=== PATIENT | male | born 1985 | race Caucasian/White ===

== ENCOUNTER 2017-12-06 11:00 | Outpatient (CLI) | payer MEDICARE, MEDICAID | END 2017-12-06 11:01 | disposition home or self-care (01) | LOC: RT.S 11:00 | PROVIDERS: ATTEND Nurse Practitioner Family | DX: R00.0 Tachycardia, unspecified (principal) | CPT/HCPCS: 93005 ==

== ENCOUNTER 2017-12-07 07:11 | Outpatient (CLI) | payer MEDICARE, MEDICAID ==
[2017-12-07 11:32] LABS: BASOPHILS # (AUTO) 0.1 10^3/uL (0.0-0.1); BASOPHILS % (AUTO) 0.8 %; EOSINOPHILS # (AUTO) 0.1 10^3/uL (0.0-0.7); HGB - HEMOGLOBIN 14.3 g/dL (14.0-18.0); LYMPHOCYTES # (AUTO) 2.1 10^3/uL (1.5-3.5); LYMPHOCYTES % (AUTO) 29.7 %; MEAN CORPUSCULAR HEMOGLOBIN 30.2 pg (27.0-31.0); MEAN CORPUSCULAR HGB CONC 34.8 g/dL (32.0-36.0); MEAN CORPUSCULAR VOLUME 86.9 fL (80.0-94.0); MEAN PLATELET VOLUME 7.7 fL (7.4-11.4); MONOCYTES # (AUTO) 0.5 10^3/uL (0.0-1.0); MONOCYTES % (AUTO) 7.6 %; NEUTROPHILS # (AUTO) 4.3 10^3/uL (1.5-6.6); NEUTROPHILS % (AUTO) 59.9 %; PLT - PLATELET COUNT 310 10^3/uL (130-450); RED BLOOD COUNT 4.74 10^6/uL (4.70-6.10); RED CELL DISTRIBUTION WIDTH 13.2 % (12.0-15.0); WHITE BLOOD COUNT 7.2 x10^3/uL (4.8-10.8)
[2017-12-07 11:34] LABS: ALBUMIN 4.2 g/dL (3.2-5.5); ALKALINE PHOSPHATASE 92 IU/L (42-121); ALT ALANINE AMINOTRANSFERASE 56 IU/L (10-60); AST ASPARTATE AMINOTRANSFERASE 38 IU/L (10-42); BILIRUBIN,TOTAL 1.4 mg/dL (0.2-1.0); BUN - BLOOD UREA NITROGEN 9 mg/dL (6-20); CARBON DIOXIDE - CO2 28 mmol/L (21-32); CHLORIDE 99 mmol/L (101-111); CHOL/HDL RATIO 7.7 (<5.0); CHOLESTEROL 207 mg/dL; CREATININE 1.1 mg/dL (0.6-1.2); GFR - MDRD 78 (>89); GLUCOSE 89 mg/dL (70-100); HDL CHOLESTEROL 27 mg/dL; LDL CHOLESTEROL,CALCULATED 147 mg/dL; LDL/HDL RATIO 5.4 (<3.6); SODIUM 134 mmol/L (135-145); TOTAL PROTEIN 8.4 g/dL (6.7-8.2); VLDL CHOLESTEROL 33 mg/dL
[2017-12-07 11:40] LABS: LITHIUM 0.41 mmol/L
[2017-12-07 11:49] LABS: HB2 TOTAL 15.3 g/dL; HEMOGLOBIN A1C 0.51 g/dL; HEMOGLOBIN A1C % 5.2 % (4.6-6.2)
== END 2017-12-07 07:12 | disposition home or self-care (01) ==
LOC: LAB.F 07:11
PROVIDERS: ATTEND Nurse Practitioner Family
DX: F31.2 Bipolar disorder, current episode manic severe with psychotic features (principal); Z79.899 Other long term (current) drug therapy; Z13.1 Encounter for screening for diabetes mellitus; Z13.220 Encounter for screening for lipoid disorders; Z13.29 Encounter for screening for other suspected endocrine disorder
CPT/HCPCS: 36415; 80053; 80061; 80178; 83036; 83721; 84443; 85025

== ENCOUNTER 2018-12-21 07:16 | Outpatient (CLI) | payer MEDICARE, MEDICAID ==
[2018-12-21 09:50] LABS: BASOPHILS # (AUTO) 0.1 10^3/uL (0.0-0.1); BASOPHILS % (AUTO) 0.6 %; EOSINOPHILS # (AUTO) 0.2 10^3/uL (0.0-0.7); EOSINOPHILS % (AUTO) 2.6 %; HGB - HEMOGLOBIN 14.7 g/dL (14.0-18.0); LYMPHOCYTES # (AUTO) 2.2 10^3/uL (1.5-3.5); LYMPHOCYTES % (AUTO) 28.7 %; MEAN CORPUSCULAR HEMOGLOBIN 29.5 pg (27.0-31.0); MEAN CORPUSCULAR HGB CONC 33.4 g/dL (32.0-36.0); MEAN CORPUSCULAR VOLUME 88.2 fL (80.0-94.0); MEAN PLATELET VOLUME 10.3 fL (7.4-11.4); MONOCYTES # (AUTO) 0.5 10^3/uL (0.0-1.0); NEUTROPHILS # (AUTO) 4.7 10^3/uL (1.5-6.6); NEUTROPHILS % (AUTO) 60.7 %; PLT - PLATELET COUNT 288 10^3/uL (130-450); RED BLOOD COUNT 4.99 10^6/uL (4.70-6.10); RED CELL DISTRIBUTION WIDTH 12.6 % (12.0-15.0); WHITE BLOOD COUNT 7.7 x10^3/uL (4.8-10.8)
[2018-12-21 09:55] LABS: LITHIUM 0.45 mmol/L
[2018-12-21 10:06] LABS: ALBUMIN 4.2 g/dL (3.2-5.5); ALKALINE PHOSPHATASE 101 IU/L (42-121); ALT ALANINE AMINOTRANSFERASE 43 IU/L (10-60); AST ASPARTATE AMINOTRANSFERASE 26 IU/L (10-42); BILIRUBIN,TOTAL 0.5 mg/dL (0.2-1.0); BUN - BLOOD UREA NITROGEN 11 mg/dL (6-20); CALCIUM 9.2 mg/dL (8.5-10.3); CARBON DIOXIDE - CO2 27 mmol/L (21-32); CHLORIDE 101 mmol/L (101-111); CHOL/HDL RATIO 7.6 (<5.0); CHOLESTEROL 219 mg/dL; CREATININE 0.9 mg/dL (0.6-1.2); GFR - MDRD 98 (>89); GLUCOSE 107 mg/dL (70-100); HDL CHOLESTEROL 29 mg/dL; LDL CHOLESTEROL,CALCULATED 142 mg/dL; LDL/HDL RATIO 4.9 (<3.6); SODIUM 138 mmol/L (135-145); TOTAL PROTEIN 8.3 g/dL (6.7-8.2); VLDL CHOLESTEROL 48 mg/dL
[2018-12-21 16:22] LABS: HB2 TOTAL 14.9 g/dL; HEMOGLOBIN A1C 0.51 g/dL; HEMOGLOBIN A1C % 5.3 % (4.6-6.2)
== END 2018-12-21 07:17 | disposition home or self-care (01) ==
LOC: LAB.S 07:16
PROVIDERS: ATTEND Registered Nurse
DX: F25.9 Schizoaffective disorder, unspecified (principal); F31.30 Bipolar disorder, current episode depressed, mild or moderate severity, unspecified; F41.9 Anxiety disorder, unspecified; Z79.899 Other long term (current) drug therapy; Z13.220 Encounter for screening for lipoid disorders; Z13.1 Encounter for screening for diabetes mellitus
CPT/HCPCS: 36415; 80053; 80061; 80178; 83036; 83721; 84443; 85025

== ENCOUNTER 2019-02-19 09:44 | Outpatient (CLI) | payer MEDICARE, MEDICAID ==
[2019-02-19 17:28] LABS: LITHIUM 0.47 mmol/L
== END 2019-02-19 09:45 | disposition home or self-care (01) ==
LOC: LAB.S 09:44
PROVIDERS: ATTEND Registered Nurse
DX: F31.9 Bipolar disorder, unspecified (principal)
CPT/HCPCS: 36415; 80178; 84443

== ENCOUNTER 2019-03-20 09:03 | Outpatient (CLI) | payer MEDICARE, MEDICAID ==
[2019-03-20 18:27] LABS: LITHIUM 0.63 mmol/L
== END 2019-03-20 09:04 | disposition home or self-care (01) ==
LOC: LAB.S 09:03
PROVIDERS: ATTEND Registered Nurse
DX: F31.30 Bipolar disorder, current episode depressed, mild or moderate severity, unspecified (principal)
CPT/HCPCS: 36415; 80178

== ENCOUNTER 2019-05-30 08:20 | Emergency (ER) | payer MEDICARE, MEDICAID ==
[2019-05-30 09:29] LABS: BILIRUBIN,URINE NEGATIVE (NEGATIVE); GLUCOSE, URINE (UA) NEGATIVE (NEGATIVE); KETONES,URINE (UA) NEGATIVE (NEGATIVE); LEUKOCYTE ESTERASE, URINE NEGATIVE (NEGATIVE); NITRITE,URINE NEGATIVE (NEGATIVE); OCCULT BLOOD,URINE SMALL (NEGATIVE); PROTEIN,URINE NEGATIVE (NEGATIVE); UROBILINOGEN,URINE 0.2 (NORMAL) E.U./dL (NORMAL)
[2019-05-30 09:31] LABS: CLARITY,URINE CLEAR (CLEAR)
--- NOTE | 2019-05-30 09:38 | ED Physician Documentation ---
PD HPI ABD PAIN - Stated complaint Stated Complaint: ABD PX - Chief complaint Chief Complaint: Abd Pain - History obtained from History obtained from: Patient, Family - History of Present Illness Timing - onset: How many days ago (3) Timing - duration: Days (3) Timing - details: Gradual onset, Now resolved Quality: Cramping, Sharp, Pain Location: Suprapubic Radiation: Lower back Improved by: Laying still Worsened by: Moving, Position, Palpation Associated symptoms: Nausea, Vomiting, Constipation Similar symptoms before: Has not had sx before Recently seen: Not recently seen - Additional information Additional information: 33-year-old male with a history of schizoaffective bipolar disorder comes to the emergency department this morning with his father with a history of 3 days of lower abdominal pain. He states the pain is just above his pubic bone and has radiated to his back. He has been constipated and yesterday he began to vomit. He is not having vomiting today and he did take some stool softener and a laxative has had a bowel movement this morning and since he has been in the emergency department he has had a bowel movement here and he feels improved. Review of Systems Constitutional: denies: Fever, Chills Eyes: denies: Decreased vision Ears: denies: Ear pain Nose: denies: Congestion Throat: denies: Dental pain / toothache, Sore throat Cardiac: denies: Chest pain / pressure, Palpitations Respiratory: denies: Dyspnea, Cough GI: reports: Abdominal Pain, Nausea, Vomiting, Constipation : denies: Dysuria, Frequency Skin: denies: Rash Musculoskeletal: reports: Back pain. denies: Neck pain, Extremity pain Neurologic: denies: Generalized weakness, Focal weakness, Numbness, Difficulty speaking PD PAST MEDICAL HISTORY - Past Medical History Past Medical History: Yes Cardiovascular: Other Respiratory: None Neuro: None Endocrine/Autoimmune: None GI: None : None HEENT: None Psych: Depression, Anxiety, Bipolar disorder, Schizophrenia, Obsessive compulsive disorder Musculoskeletal: Other Derm: None - Past Surgical History Past Surgical History: Yes - Present Medications Home Medications: Ambulatory Orders Medication Instructions Recorded Confirmed Citalopram Hydrobromide 40 mg PO DAILY 03/31/18 05/30/19 [Citalopram HBr] [place] [facility] [Lithobid] 300 mg PO BID 03/31/18 05/30/19 Paliperidone Palmitate [Invega 117 mg IM ONCE MDD EVERY MONTH 03/31/18 05/30/19 Sustenna] Prazosin [Minipress] 1 mg PO QPM 03/31/18 05/30/19 Trazodone HCl 50 mg PO QPM 03/31/18 05/30/19 - Allergies Allergies/Adverse Reactions: Allergies Allergy/AdvReac Type Severity Reaction Status Date / Time No Known Drug Allergies Allergy Verified 05/30/19 08:26 - Social History Does the pt smoke?: No Smoking Status: Never smoker Does the pt drink ETOH?: No Does the pt have substance abuse?: No - Immunizations Immunizations are current?: Yes - POLST Patient has POLST: No PD ED PE NORMAL - Vitals Vital signs reviewed: Yes (tachy and hypertensive ) - General General: No acute distress, Well developed/nourished - HEENT HEENT: Atraumatic, PERRL, EOMI - Neck Neck: Supple, no meningeal sign, No bony TTP - Cardiac Cardiac: RRR, No murmur - Respiratory Respiratory: No respiratory distress, Clear bilaterally - Abdomen Abdomen: Normal bowel sounds, Soft, Non tender, Non distended, No organomegaly - Back Back: No CVA TTP, No spinal TTP - Derm Derm: Normal color, Warm and dry, No rash - Extremities Extremities: No deformity, No edema, No calf tenderness / cord - Neuro Neuro: Alert and oriented X 3, ice guard skating rink 2-12 intact, No motor deficit, No sensory deficit, Normal speech Eye Opening: Spontaneous Motor: Obeys Commands Verbal: Oriented GCS Score: 15 - Psych Psych: Normal mood, Normal affect Results - Vitals Vitals: Vital Signs - 24 hr 05/30/19 05/30/19 08:26 09:14 Temperature 37 C 36.8 C Heart Rate 102 H 82 Respiratory 16 16 Rate Blood Pressure 150/83 H 135/78 H O2 Saturation 96 97 Oxygen O2 Source Room air - Labs Labs: Laboratory Tests 05/30/19 09:10 Urine Color YELLOW Urine Clarity CLEAR Urine pH 6.0 Ur Specific [place] <=1.005 Urine Protein NEGATIVE Urine Glucose (UA) NEGATIVE Urine Ketones NEGATIVE Urine Occult Blood SMALL H Urine Nitrite NEGATIVE Urine Bilirubin NEGATIVE Urine Urobilinogen 0.2 (NORMAL) Ur Leukocyte Esterase NEGATIVE Ur Microscopic Review INDICATED Urine Culture Comments Not Reportable PD MEDICAL DECISION MAKING - ED course Complexity details: considered differential, d/w patient, d/w family ED course: 33-year-old male with lower abdominal pain and constipation by history has had a bowel movement here in the emergency department his symptoms are now resolved and the physical examination is completely unremarkable. I discussed the findings with the patient and his father they are very satisfied and wished to go home without further work-up. Departure - Departure Disposition: 01 Home, Self Care Clinical Impression: Constipation Qualifiers: Constipation type: unspecified constipation type Qualified Code(s): K59.00 - Constipation, unspecified Condition: Stable Instructions: ED Constipation Follow-Up: Temi Case ARNP [Primary Care Provider] -
[2019-05-30 09:46] VITALS: BP 176/95
[2019-05-30 09:52] LABS: BACTERIA,URINE Rare /HPF (None Seen); RBC,URINE 0-5 /HPF (0-5); SQUAMOUS EPITHELIAL CELL,UR NONE SEEN (<= Few)
== END 2019-05-30 09:45 | disposition home or self-care (01) ==
LOC: ED 08:20
DX: K59.00 Constipation, unspecified (principal)
CPT/HCPCS: 81001; 81003; 87086; 99283; 99284

== ENCOUNTER 2019-05-30 20:40 | Emergency (ER) | payer MEDICARE, MEDICAID ==
[2019-05-30] MEDS ORDERED: SODIUM CHLORIDE 0.9% 1,000 ML IV STA (21:08)
[2019-05-30] MEDS ORDERED: MORPHINE 10 MG/ML VIAL IVP STA (21:08)
[2019-05-30] MEDS ORDERED: ONDANSETRON 4 MG/2 ML VIAL IVP STA (21:08)
--- NOTE | 2019-05-30 21:10 | ED Physician Documentation ---
PD HPI ABD PAIN - Stated complaint Stated Complaint: AB PX - Chief complaint Chief Complaint: Abd Pain - Additional information Additional information: This is a 33-year-old male who presents with abdominal pain. Patient has had lower abdominal pain for 3 days, started as dull crampy type pain across his lower abdomen and then it began rating to his bilateral flanks. He was seen earlier today and had a urinalysis done which was unremarkable. He felt like he had constipation but despite taking some stool softeners and laxatives and having several bowel movements his pain worsened. It is currently a 09/18. He also had 2 episodes of vomiting which have been nonbloody, nonbilious. His bowel movements been soft but not diarrhea. He has not had any abdominal surgeries in the past. He has been taking some Tylenol and this is not been helping. No fever. On specific questioning his discomfort radiates down towards the scrotum but he denies testicular penile pain. No dysuria. No confusion. No recent changes to medication. He takes Invega and lithium. Review of Systems Constitutional: denies: Fever Nose: denies: Rhinorrhea / runny nose Throat: denies: Dental pain / toothache Cardiac: denies: Chest pain / pressure Respiratory: denies: Dyspnea GI: reports: Abdominal Pain : denies: Dysuria Skin: denies: Rash Neurologic: denies: Generalized weakness Immunocompromised: denies: Immunocompromised PD PAST MEDICAL HISTORY - Past Medical History Cardiovascular: Other Respiratory: None Neuro: None Endocrine/Autoimmune: None GI: None : None HEENT: None Psych: Depression, Anxiety, Bipolar disorder, Schizophrenia, Obsessive compulsive disorder Musculoskeletal: Other Derm: None - Past Surgical History Past Surgical History: Yes - Present Medications Home Medications: Ambulatory Orders Medication Instructions Recorded Confirmed Citalopram Hydrobromide 40 mg PO DAILY 03/31/18 05/30/19 [Citalopram HBr] [place] [facility] [Lithobid] 300 mg PO BID 03/31/18 05/30/19 Paliperidone Palmitate [Invega 117 mg IM ONCE MDD EVERY MONTH 03/31/18 05/30/19 Sustenna] Prazosin [Minipress] 1 mg PO QPM 03/31/18 05/30/19 Trazodone HCl 50 mg PO QPM 03/31/18 05/30/19 Hydrocodone/Acetaminophen 1 each PO Q6H PRN #5 tablet 05/31/19 [Hydrocodon-Acetaminophen 5-325] - Allergies Allergies/Adverse Reactions: Allergies Allergy/AdvReac Type Severity Reaction Status Date / Time No Known Drug Allergies Allergy Verified 05/30/19 20:50 - Social History Does the pt smoke?: No Smoking Status: Never smoker Does the pt drink ETOH?: No Does the pt have substance abuse?: No - Immunizations Immunizations are current?: Yes - POLST Patient has POLST: No PD ED PE NORMAL - Vitals Vital signs reviewed: Yes - General General: Alert and oriented X 3, No acute distress - HEENT HEENT: PERRL - Neck Neck: Supple, no meningeal sign - Cardiac Cardiac: No murmur, Other (Tachycardia, regular rhythm) - Respiratory Respiratory: No respiratory distress, Clear bilaterally - Abdomen Abdomen: Soft, Other (Non-tender, mild bilateral lower abdominal discomfort, but no specific RLQ tenderness.) - Male Male : Other (Normal appearing external genitalia, no testicular tenderness, Cremasteric reflex intact bilaterally, no hernia ) - Derm Derm: Warm and dry - Extremities Extremities: No deformity - Neuro Neuro: Alert and oriented X 3, network project manager 2-12 intact, No motor deficit, No sensory deficit, Normal speech, Other (No significant tremor with outstretched hands. Normal gait.) - Psych Psych: Normal mood, Normal affect Results - Vitals Vitals: Oxygen O2 Source Room air - Labs Labs: Laboratory Tests 05/30/19 05/30/19 05/30/19 21:17 21:17 23:59 WBC 10.8 RBC 4.55 L Hgb 13.3 L Hct 40.2 L MCV 88.4 MCH 29.2 MCHC 33.1 RDW 12.4 Plt Count 257 MPV 9.0 Neut # (Auto) 8.5 H Lymph # (Auto) 1.4 L [place] # (Auto) 0.7 Eos # (Auto) 0.1 Baso # (Auto) 0.0 Absolute Nucleated RBC 0.00 Nucleated RBC % 0.0 Sodium 137 138 Potassium 3.6 4.0 Chloride 103 105 Carbon Dioxide 25 25 Anion Gap 9.0 8.0 BUN 25 H 26 H Creatinine 2.3 H 2.3 H Estimated GFR (MDRD) 33 L 33 L Glucose 165 H 82 Calcium 9.2 8.9 Total Bilirubin 0.4 AST 24 ALT 24 Alkaline Phosphatase 91 Total Protein 8.4 H Albumin 4.0 Globulin 4.4 H Albumin/Globulin Ratio 0.9 L Lipase 45 Urine Color Urine Clarity Urine pH Ur Specific [place] Urine Protein Urine Glucose (UA) Urine Ketones Urine Occult Blood Urine Nitrite Urine Bilirubin Urine Urobilinogen Ur Leukocyte Esterase Urine RBC Urine WBC Ur Squamous Epith Cells Urine Bacteria Urine Culture Comments Last Dose Date Last Dose Time [place] 05/30/19 05/31/19 23:59 00:42 WBC RBC Hgb Hct MCV MCH MCHC RDW Plt Count MPV Neut # (Auto) Lymph # (Auto) [place] # (Auto) Eos # (Auto) Baso # (Auto) Absolute Nucleated RBC Nucleated RBC % Sodium Potassium Chloride Carbon Dioxide Anion Gap BUN Creatinine Estimated GFR (MDRD) Glucose Calcium Total Bilirubin AST ALT Alkaline Phosphatase Total Protein Albumin Globulin Albumin/Globulin Ratio Lipase Urine Color YELLOW Urine Clarity CLEAR Urine pH 7.0 Ur Specific [place] <=1.005 Urine Protein NEGATIVE Urine Glucose (UA) NEGATIVE Urine Ketones NEGATIVE Urine Occult Blood TRACE-INTA Urine Nitrite NEGATIVE Urine Bilirubin NEGATIVE Urine Urobilinogen 0.2 (NORMAL) Ur Leukocyte Esterase NEGATIVE Urine RBC 0-5 Urine WBC 0-3 Ur Squamous Epith Cells NONE SEEN Urine Bacteria None Seen Urine Culture Comments NOT INDICATED Last Dose Date 05/30/19 Last Dose Time 1100 [place] 0.77 - Rads (name of study) Ct abd/pelvis Radiology: Other (Normal abdomen and pelvis CT) PD MEDICAL DECISION MAKING - ED course Complexity details: considered differential (Nephrolithiasis, urinary retention, pyelonephritis, urinary obstruction, enteritis, appendicitis, electrolyte abnormality, glomerular nephritis, [place] toxicity.) ED course: On arrival patient was tachycardic, but he is well-appearing. Pt has some tenderness in the lower abdomen, CT and labs were ordered. Labs are drawn and show an unremarkable CBC. His CMP shows an elevated creatinine at 2.3 his baseline appears to be around 1, his BUN is 26, his urine does not show any protein, 0-5 RBCs 0-3 WBCs, no casts, his lithium level is on the low side of the therapeutic range at 0.77. CT scan is abdomen pelvis reveals no abdominal pathology. Given his acute kidney injury, he was given a liter of normal saline, though he states that he has been drinking water and he does not feel dehydrated. His urine does not show signs of glomerulonephritis, and a CT scan does not show signs of obstruction, or other acute abdominal process. His postvoid residual is 0-30 cc, no signs of retention. He Reports taking his medications as prescribed. [facility] was paged at 1:20 AM. I spoke with Dr. Kapadia of nephrology and discussed the case with her. Given there are no signs of glomerulonephritis, the patient is nontoxic-appearing, his vital signs are now unremarkable other than some mild hypertension, she will schedule outpatient follow-up for him in clinic. He does not appear to need hospitalization or a renal biopsy at this time. She also would like him to get a repeat BMP and urinalysis by next Tuesday, to check for protein in his urine or worsening kidney function. I discussed this with the patient, and offered the plan of close outpatient follow-up versus transfer to [facility], he would prefer to pursue the work-up outpatient if possible. I discussed with patient that the exact cause of his acute kidney injury is unknown, it is possible however that his lithium is playing a role. I instructed him to stop taking his lithium, drink plenty of fluids, and that if he is developing any repeated vomiting, diarrhea, confusion, ataxia or other symptoms he is to return to the emergency department immediately. He has no neurologic symptoms or signs of potential lithium toxicity other than the LYRIC at this time, and does not appear to require admission given his ability for close follow up. I instructed patient to obtain repeat labs within 48 hours, either with his PCP or here in the ED. He agrees this plan. His pain is more mild after he received 1 dose more I discussed with him that if he is having increasing or significant pain he needs to be reevaluated, but I do feel comfortable prescribing him a small number of Vicodin for discomfort in the interim. Patient has father's questions were answered, my return precautions was again discussed, and he was discharged home in good cond ition. Departure - Departure Disposition: 01 Home, Self Care Clinical Impression: Acute kidney injury Condition: Good Follow-Up: Temi Case ARNP [Primary Care Provider] - (In 2 days) Prescriptions: Hydrocodone/Acetaminophen [Hydrocodon-Acetaminophen 5-325] 1 each PO Q6H PRN #5 tablet PRN Reason: pain Comments: The CT scan did not show an obvious cause of your abdominal pain. Your kidney function is decreased, your creatinine was 2.3 today. This may be related to your [place]. Please do not take any more of your lithium until you are cleared by your doctor. You need to have a basic metabolic panel and a urinalysis taken by Tuesday at the latest, and ideally by Tuesday. If your kidney function is worsening or if there are signs of protein or blood in your urine, you will need to be seen in hospital by a rn support services/kidney specialist. If you are unable to get these labs done with your primary care provider, return to the emergency department for re-testing. We have also spoken with Dr. Kapadia of nephrology at [facility], and they will be contacting you to schedule an appointment. If you are having increasing pain, any confusion, shakiness, vomiting, diarrhea, or other concerning symptoms, return to the emergency department immediately. Drink plenty of fluids. I am prescribing you a very small number of Hydrocodone, use these sparingly and only if your pain is not controlled with Tylenol alone. I would avoid ibuprofen and Aleve as these can cause issues with your kidneys. Do not drink alcohol or drive while taking narcotic pain medication. Note that many narcotic pain relievers also contain Tylenol/acetaminophen. Please ensure that your total dose of acetaminophen from all sources does not exceed 3 g (3000 mg) per day. You may get constipated while on this medication. Take a stool softener such as Colace twice a day while you are on it. Also add an [id number] laxative such as senna or MiraLAX on any day that you do not have a bowel movement. If you received a narcotic pain medication or sedative while in the emergency department, do not drive for the next 24 hours. Discharge Date/Time: 05/31/19 03:34
[2019-05-30] MEDS ORDERED: MORPHINE 2 MG/ML CARPUJECT IVP STA (21:19)
[2019-05-30 21:21] LABS: BASOPHILS % (AUTO) 0.3 %; EOSINOPHILS # (AUTO) 0.1 10^3/uL (0.0-0.7); HGB - HEMOGLOBIN 13.3 g/dL (14.0-18.0); LYMPHOCYTES # (AUTO) 1.4 10^3/uL (1.5-3.5); LYMPHOCYTES % (AUTO) 13.2 %; MEAN CORPUSCULAR HEMOGLOBIN 29.2 pg (27.0-31.0); MEAN CORPUSCULAR HGB CONC 33.1 g/dL (32.0-36.0); MEAN CORPUSCULAR VOLUME 88.4 fL (80.0-94.0); MONOCYTES # (AUTO) 0.7 10^3/uL (0.0-1.0); MONOCYTES % (AUTO) 6.5 %; NEUTROPHILS # (AUTO) 8.5 10^3/uL (1.5-6.6); NEUTROPHILS % (AUTO) 78.5 %; PLT - PLATELET COUNT 257 10^3/uL (130-450); RED BLOOD COUNT 4.55 10^6/uL (4.70-6.10); RED CELL DISTRIBUTION WIDTH 12.4 % (12.0-15.0); WHITE BLOOD COUNT 10.8 x10^3/uL (4.8-10.8)
[2019-05-30] MEDS ORDERED: IOVERSOL 320 100 ML VIAL IVP ONE ×2 (21:31→22:24)
[2019-05-30 21:38] LABS: ALBUMIN/GLOBULIN RATIO 0.9 (1.0-2.2); BILIRUBIN,TOTAL 0.4 mg/dL (0.2-1.0); CALCIUM 9.2 mg/dL (8.5-10.3); CREATININE 2.3 mg/dL (0.6-1.2); TOTAL PROTEIN 8.4 g/dL (6.7-8.2)
--- NOTE | 2019-05-30 22:48 | CT Report ---
Reason: Abdominal pain, acute, nonlocalized Procedure Date: 05/30/2019 Accession Number: [id number] / [id number] Procedure: CT - Abdomen/Pelvis W CPT Code: Final Report FULL RESULT: EXAM: CT ABDOMEN AND PELVIS EXAM DATE: 05/30/2019 10:25 PM. CLINICAL HISTORY: Abdominal pain, acute, nonlocalized, for 3-4 days. COMPARISONS: None. TECHNIQUE: Routine helical CT imaging was performed through the abdomen and pelvis. IV contrast: 100 cc of Optiray 320. Enteric contrast: No. Reconstructions: Coronal and sagittal. In accordance with CT protocol optimization, one or more of the following dose reduction techniques were utilized for this exam: automated exposure control, adjustment of mA and/or KV based on patient size, or use of iterative reconstructive technique. FINDINGS: Lung Bases: Unremarkable. Liver: Normal. No masses. Gallbladder/Bile Ducts: Unremarkable. Spleen: Normal. Pancreas: Normal. Adrenal Glands: Normal. Kidneys: Normal. No masses or hydronephrosis. Peritoneal Cavity/Bowel: Normal. No free fluid, free air or adenopathy. No masses or acute inflammatory process. The appendix is well visualized and normal. Pelvic Organs: Normal. The bladder and visualized pelvic organs are within normal limits. Vasculature: No aneurysms or other significant abnormality. Bones: No significant abnormality. Other: None. IMPRESSION: Normal abdomen and pelvis CT. RADIA
[2019-05-31 00:24] LABS: CALCIUM 8.9 mg/dL (8.5-10.3); CREATININE 2.3 mg/dL (0.6-1.2)
[2019-05-31 00:40] LABS: LITHIUM 0.77 mmol/L
[2019-05-31 00:48] LABS: BILIRUBIN,URINE NEGATIVE (NEGATIVE); GLUCOSE, URINE (UA) NEGATIVE (NEGATIVE); KETONES,URINE (UA) NEGATIVE (NEGATIVE); LEUKOCYTE ESTERASE, URINE NEGATIVE (NEGATIVE); NITRITE,URINE NEGATIVE (NEGATIVE); OCCULT BLOOD,URINE TRACE-INTA (NEGATIVE); PROTEIN,URINE NEGATIVE (NEGATIVE); UROBILINOGEN,URINE 0.2 (NORMAL) E.U./dL (NORMAL)
[2019-05-31 00:51] LABS: CLARITY,URINE CLEAR (CLEAR)
[2019-05-31 00:55] LABS: BACTERIA,URINE None Seen /HPF (None Seen); RBC,URINE 0-5 /HPF (0-5); SQUAMOUS EPITHELIAL CELL,UR NONE SEEN (<= Few)
[2019-05-31] MEDS ORDERED: HYDROcod/ACETAM 5/325 MG TABLET PO STA (03:18)
[2019-05-31 03:33] VITALS: BP 128/70
== END 2019-05-31 03:34 | disposition home or self-care (01) ==
LOC: ED 20:40
DX: N17.9 Acute kidney failure, unspecified (principal); K59.00 Constipation, unspecified
CPT/HCPCS: 36415; 74177; 80048; 80053; 80178; 81001; 83690; 85025; 96361; 96374; 96375; 99283; 99284; A9270; Q9967; 81003; 87086

== ENCOUNTER 2019-06-01 15:21 | Outpatient (CLI) | payer MEDICARE, MEDICAID ==
[2019-06-01 18:10] LABS: HB2 TOTAL 14.2 g/dL; HEMOGLOBIN A1C 0.49 g/dL; HEMOGLOBIN A1C % 5.3 % (4.6-6.2)
[2019-06-01 18:40] LABS: CALCIUM 9.4 mg/dL (8.5-10.3); CREATININE 2.2 mg/dL (0.6-1.2)
[2019-06-01 18:48] LABS: BILIRUBIN,URINE NEGATIVE (NEGATIVE); GLUCOSE, URINE (UA) NEGATIVE (NEGATIVE); KETONES,URINE (UA) NEGATIVE (NEGATIVE); LEUKOCYTE ESTERASE, URINE NEGATIVE (NEGATIVE); NITRITE,URINE NEGATIVE (NEGATIVE); OCCULT BLOOD,URINE SMALL (NEGATIVE); PROTEIN,URINE NEGATIVE (NEGATIVE); UROBILINOGEN,URINE 0.2 (NORMAL) E.U./dL (NORMAL)
[2019-06-01 18:50] LABS: CLARITY,URINE CLEAR (CLEAR)
[2019-06-01 19:04] LABS: BACTERIA,URINE None Seen /HPF (None Seen); RBC,URINE 0-5 /HPF (0-5); SQUAMOUS EPITHELIAL CELL,UR NONE SEEN (<= Few)
== END 2019-06-01 15:22 | disposition home or self-care (01) ==
LOC: LAB.S 15:21
PROVIDERS: ATTEND Registered Nurse
DX: R10.9 Unspecified abdominal pain (principal)
CPT/HCPCS: 36415; 80048; 81001; 81003; 83036

== ENCOUNTER 2019-06-25 08:00 | Outpatient (CLI) | payer MEDICARE, MEDICAID ==
[2019-06-25 17:30] LABS: CREATININE,URINE 96.1 mg/dL
[2019-06-25 17:36] LABS: BILIRUBIN,URINE NEGATIVE (NEGATIVE); GLUCOSE, URINE (UA) NEGATIVE (NEGATIVE); KETONES,URINE (UA) NEGATIVE (NEGATIVE); LEUKOCYTE ESTERASE, URINE NEGATIVE (NEGATIVE); NITRITE,URINE NEGATIVE (NEGATIVE); OCCULT BLOOD,URINE NEGATIVE (NEGATIVE); PROTEIN,URINE NEGATIVE (NEGATIVE); UROBILINOGEN,URINE 0.2 (NORMAL) E.U./dL (NORMAL)
[2019-06-25 17:41] LABS: ALBUMIN 4.2 g/dL (3.2-5.5); CALCIUM 9.2 mg/dL (8.5-10.3); CLARITY,URINE CLEAR (CLEAR); PHOSPHORUS 3.2 mg/dL (2.5-4.6); TOTAL PROTEIN,URINE TIMED < 6 mg/dL; URIC ACID 6.2 mg/dL (2.6-7.2)
== END 2019-06-25 23:59 | disposition home or self-care (01) ==
LOC: LAB.S 08:00
PROVIDERS: ATTEND Internal Medicine Nephrology
DX: N17.9 Acute kidney failure, unspecified (principal); R31.9 Hematuria, unspecified
CPT/HCPCS: 36415; 80069; 81001; 81003; 82570; 84156; 84550; 87086

== ENCOUNTER 2019-12-19 20:08 | Emergency (ER) | payer MEDICARE, MEDICAID ==
--- NOTE | 2019-12-19 20:12 | ED Physician Documentation ---
History of Present Illness - Stated complaint Stated Complaint: CP - History obtained from History obtained from: Patient - Additonal information Additional information: 34 y/o m w cp that lasted about 5 seconds while sitting in chair. denies any hx of pe/dvt. denies syncope. reports symptoms are resolved currently. Review of Systems Constitutional: reports: Reviewed and negative Eyes: reports: Reviewed and negative Ears: reports: Reviewed and negative Nose: reports: Reviewed and negative Throat: reports: Reviewed and negative Cardiac: reports: Chest pain / pressure, Palpitations Respiratory: reports: Reviewed and negative GI: reports: Reviewed and negative : reports: Reviewed and negative Skin: reports: Reviewed and negative Musculoskeletal: reports: Reviewed and negative Neurologic: reports: Reviewed and negative Psychiatric: reports: Reviewed and negative Endocrine: reports: Reviewed and negative Immunocompromised: reports: Reviewed and negative PD PAST MEDICAL HISTORY - Past Medical History Cardiovascular: Other Respiratory: None Neuro: None Endocrine/Autoimmune: None GI: None : None HEENT: None Psych: Depression, Anxiety, Bipolar disorder, Schizophrenia, Obsessive compulsive disorder Musculoskeletal: Other Derm: None - Past Surgical History Past Surgical History: Yes - Present Medications Home Medications: Ambulatory Orders Medication Instructions Recorded Confirmed Citalopram Hydrobromide 40 mg PO DAILY 03/31/18 09/14/19 [Citalopram HBr] Paliperidone Palmitate [Invega 117 mg IM ONCE MDD EVERY MONTH 03/31/18 09/14/19 Sustenna] Prazosin [Minipress] 1 mg PO QPM 03/31/18 09/14/19 Trazodone HCl 100 mg PO QPM 03/31/18 09/14/19 - Allergies Allergies/Adverse Reactions: Allergies Allergy/AdvReac Type Severity Reaction Status Date / Time No Known Drug Allergies Allergy Verified 12/19/19 20:24 - Social History Does the pt smoke?: No Smoking Status: Never smoker Does the pt drink ETOH?: No Does the pt have substance abuse?: No - Immunizations Immunizations are current?: Yes - POLST Patient has POLST: No PD ED PE NORMAL - Vitals Vital signs reviewed: Yes - General General: Alert and oriented X 3, No acute distress, Well developed/nourished - HEENT HEENT: PERRL, Moist mucous membranes - Neck Neck: Supple, no meningeal sign, No adenopathy, Thyroid normal, No JVD - Cardiac Cardiac: RRR, No murmur, No gallop, No rub, Strong equal pulses - Respiratory Respiratory: No respiratory distress, Clear bilaterally - Abdomen Abdomen: Normal bowel sounds, Soft, Non tender, Non distended, No organomegaly - Back Back: No CVA TTP, No spinal TTP - Derm Derm: Normal color, Warm and dry, No rash - Extremities Extremities: No deformity, No tenderness to palpate, Normal ROM s pain, No edema, No calf tenderness / cord - Neuro Neuro: Alert and oriented X 3, automation engineer 2-12 intact, No motor deficit, No sensory deficit, Normal speech - Psych Psych: Normal mood, Normal affect Results - Vitals Vitals: Vital Signs - 24 hr 12/19/19 12/19/19 12/19/19 20:22 20:46 21:56 Temperature 36.8 C Heart Rate 111 H 100 97 Respiratory 18 22 17 Rate Blood Pressure 160/89 H 150/92 H 139/89 H O2 Saturation 97 97 95 Oxygen O2 Source Room air - EKG (time done) 20:15 Rate: Other (no stemi) - Labs Labs: Laboratory Tests 12/19/19 12/19/19 12/19/19 20:45 20:45 20:45 WBC 7.2 RBC 5.03 Hgb 14.7 Hct 43.4 MCV 86.3 MCH 29.2 MCHC 33.9 RDW 12.7 Plt Count 275 MPV 9.1 Neut # (Auto) 4.0 Lymph # (Auto) 2.4 [place] # (Auto) 0.6 Eos # (Auto) 0.1 Baso # (Auto) 0.0 Absolute Nucleated RBC 0.00 Nucleated RBC % 0.0 D-Dimer Sodium 136 Potassium 3.4 L Chloride 100 L Carbon Dioxide 26 Anion Gap 10.0 BUN 11 Creatinine 0.9 Estimated GFR (MDRD) 97 Glucose 109 H Calcium 8.9 Total Bilirubin 0.7 AST 32 ALT 57 Alkaline Phosphatase 118 Troponin I High Sens 2.9 Total Protein 8.6 H Albumin 4.3 Globulin 4.3 H Albumin/Globulin Ratio 1.0 Lipase 42 12/19/19 20:45 WBC RBC Hgb Hct MCV MCH MCHC RDW Plt Count MPV Neut # (Auto) Lymph # (Auto) [place] # (Auto) Eos # (Auto) Baso # (Auto) Absolute Nucleated RBC Nucleated RBC % D-Dimer 216.9 Sodium Potassium Chloride Carbon Dioxide Anion Gap BUN Creatinine Estimated GFR (MDRD) Glucose Calcium Total Bilirubin AST ALT Alkaline Phosphatase Troponin I High Sens Total Protein Albumin Globulin Albumin/Globulin Ratio Lipase PD MEDICAL DECISION MAKING - ED course Complexity details: considered differential (likely atypical chest pain,), other (heart score 0, PERC 1 because of HR, negative cxr, negative d dimer, negative cxr) Departure - Departure Disposition: 01 Home, Self Care Clinical Impression: Atypical chest pain Condition: Stable Instructions: ED Chest Pain Atypical Unkn Cause Follow-Up: Temi Case ARNP [Primary Care Provider] - Tomorrow Comments: please follow up with your primary care provider tomorrow. return to the emergency department with any concerns. Discharge Date/Time: 12/19/19 21:56
[2019-12-19 20:53] LABS: BASOPHILS % (AUTO) 0.4 %; EOSINOPHILS # (AUTO) 0.1 10^3/uL (0.0-0.7); EOSINOPHILS % (AUTO) 1.8 %; HGB - HEMOGLOBIN 14.7 g/dL (14.0-18.0); LYMPHOCYTES # (AUTO) 2.4 10^3/uL (1.5-3.5); LYMPHOCYTES % (AUTO) 33.6 %; MEAN CORPUSCULAR HEMOGLOBIN 29.2 pg (27.0-31.0); MEAN CORPUSCULAR HGB CONC 33.9 g/dL (32.0-36.0); MEAN CORPUSCULAR VOLUME 86.3 fL (80.0-94.0); MEAN PLATELET VOLUME 9.1 fL (7.4-11.4); MONOCYTES # (AUTO) 0.6 10^3/uL (0.0-1.0); MONOCYTES % (AUTO) 8.9 %; NEUTROPHILS % (AUTO) 54.9 %; PLT - PLATELET COUNT 275 10^3/uL (130-450); RED BLOOD COUNT 5.03 10^6/uL (4.70-6.10); RED CELL DISTRIBUTION WIDTH 12.7 % (12.0-15.0); WHITE BLOOD COUNT 7.2 x10^3/uL (4.8-10.8)
[2019-12-19 21:04] LABS: ALBUMIN 4.3 g/dL (3.2-5.5); BILIRUBIN,TOTAL 0.7 mg/dL (0.2-1.0); CALCIUM 8.9 mg/dL (8.5-10.3); CREATININE 0.9 mg/dL (0.6-1.2); TOTAL PROTEIN 8.6 g/dL (6.7-8.2)
--- NOTE | 2019-12-19 21:14 | XRAY Report ---
PROCEDURE: Chest 1 View X-Ray INDICATIONS: cp TECHNIQUE: One view of the chest was acquired. COMPARISON: None. FINDINGS: Surgical changes and devices: None. Lungs and pleura: No pleural effusions or pneumothorax. Lungs are clear. Mediastinum: Mediastinal contours appear normal. Heart size is normal. Bones and chest wall: No suspicious bony lesions. Overlying soft tissues appear unremarkable. IMPRESSION: No acute cardiopulmonary abnormalities. Reviewed by: Russ Cazares MD on 12/19/2019 9:13 PM PDT Approved by: Russ Cazares MD on 12/19/2019 9:13 PM PDT Station ID: [id number]
[2019-12-19 21:57] VITALS: BP 139/89
== END 2019-12-19 21:56 | disposition home or self-care (01) ==
LOC: ED 20:08
DX: R07.89 Other chest pain (principal); R00.0 Tachycardia, unspecified
CPT/HCPCS: 36415; 71045; 80053; 83690; 84484; 85025; 85379; 93005; 99283; 99284

== ENCOUNTER 2020-05-28 17:48 | Day surgery (SDC) | payer MEDICARE, MEDICAID ==
[2020-05-28 18:24] LABS: MUDS CUTOFF CONCENTRATIONS CUTOFF CONC BELOW:
[2020-05-28 18:27] LABS: BASOPHILS % (AUTO) 0.6 %; EOSINOPHILS # (AUTO) 0.1 10^3/uL (0.0-0.7); EOSINOPHILS % (AUTO) 0.9 %; HGB - HEMOGLOBIN 14.9 g/dL (14.0-18.0); LYMPHOCYTES # (AUTO) 1.5 10^3/uL (1.5-3.5); MEAN CORPUSCULAR HEMOGLOBIN 29.2 pg (27.0-31.0); MEAN CORPUSCULAR HGB CONC 33.3 g/dL (32.0-36.0); MEAN CORPUSCULAR VOLUME 87.6 fL (80.0-94.0); MEAN PLATELET VOLUME 9.1 fL (7.4-11.4); MONOCYTES # (AUTO) 0.6 10^3/uL (0.0-1.0); MONOCYTES % (AUTO) 7.9 %; NEUTROPHILS # (AUTO) 4.9 10^3/uL (1.5-6.6); NEUTROPHILS % (AUTO) 69.2 %; PLT - PLATELET COUNT 272 10^3/uL (130-450); RED CELL DISTRIBUTION WIDTH 12.4 % (12.0-15.0); WHITE BLOOD COUNT 7.1 x10^3/uL (4.8-10.8)
[2020-05-28 18:34] LABS: BILIRUBIN,URINE NEGATIVE (NEGATIVE); GLUCOSE, URINE (UA) NEGATIVE (NEGATIVE); KETONES,URINE (UA) NEGATIVE (NEGATIVE); LEUKOCYTE ESTERASE, URINE NEGATIVE (NEGATIVE); NITRITE,URINE NEGATIVE (NEGATIVE); OCCULT BLOOD,URINE NEGATIVE (NEGATIVE); PROTEIN,URINE NEGATIVE (NEGATIVE); UROBILINOGEN,URINE 1 (NORMAL) E.U./dL (NORMAL)
[2020-05-28 18:42] LABS: ALBUMIN 4.5 g/dL (3.2-5.5); BILIRUBIN,TOTAL 0.6 mg/dL (0.2-1.0); CALCIUM 9.3 mg/dL (8.5-10.3); TOTAL PROTEIN 8.8 g/dL (6.7-8.2)
[2020-05-28 18:50] LABS: AMPHETAMINE SCREEN,URINE NEGATIVE (NEGATIVE); BENZODIAZEPINES SCREEN, URINE NEGATIVE (NEGATIVE); CLARITY,URINE CLEAR (CLEAR); COCAINE SCREEN URINE NEGATIVE (NEGATIVE); METHADONE SCREEN, URINE NEGATIVE (NEGATIVE); METHAMPHETAMINES SCREEN, URINE NEGATIVE (NEGATIVE); OPIATE SCREEN, URINE NEGATIVE (NEGATIVE); OXYCODONE SCREEN, URINE NEGATIVE (NEGATIVE); PROPOXYPHENE SCREEN, URINE NEGATIVE (NEGATIVE); TRICYCLIC ANTIDEPRESSANT,URINE NEGATIVE (NEGATIVE)
--- NOTE | 2020-05-28 19:08 | ED Physician Documentation ---
PD HPI ABD PAIN - Stated complaint Stated Complaint: ABD PX - Chief complaint Chief Complaint: Abd Pain - History obtained from History obtained from: Patient - History of Present Illness Timing - onset: Today Timing - duration: Days Quality: Cramping, Aching Location: All over / everywhere Improved by: No: Eating, Laying still, Vomiting, BM, Position, Meds Worsened by: Eating Associated symptoms: Nausea. No: Fever, Vomiting, Diarrhea, Constipation, Melena, Hematochezia, Dysuria Similar symptoms before: Has not had sx before - Additional information Additional information: Patient is a 34-year-old male who complains of generalized abdominal pain for the past 3 days. Has a history of schizophrenia. He states that the pain is intermittent, feels crampy and aching. Worse with eating and drinking. Nothing makes it better. No fever. mild nausea earlier, no vomiting, no diarrhea, no constipation. Has not had similar symptoms previously. Review of Systems Constitutional: denies: Fever, Chills Cardiac: denies: Chest pain / pressure, Palpitations Respiratory: denies: Cough GI: denies: Vomiting, Diarrhea, Hematemesis, Bloody / black stool Skin: denies: Rash Musculoskeletal: denies: Neck pain, Back pain Neurologic: denies: Headache PD PAST MEDICAL HISTORY - Past Medical History Past Medical History: Yes Cardiovascular: Other Respiratory: None Neuro: None Endocrine/Autoimmune: None GI: None : None HEENT: None Psych: Depression, Anxiety, Bipolar disorder, Schizophrenia, Obsessive compulsive disorder Musculoskeletal: Other Derm: None - Past Surgical History Past Surgical History: Yes - Present Medications Home Medications: Ambulatory Orders Medication Instructions Recorded Confirmed Citalopram Hydrobromide 40 mg PO DAILY 03/31/18 05/28/20 [Citalopram HBr] Paliperidone Palmitate [Invega 117 mg IM ONCE MDD EVERY MONTH 03/31/18 05/28/20 Sustenna] Prazosin [Minipress] 1 mg PO QPM 03/31/18 05/28/20 Trazodone HCl 100 mg PO QPM 03/31/18 05/28/20 Omeprazole Magnesium 20 mg PO DAILY 05/28/20 05/28/20 Promethazine [Phenergan] 25 mg PO Q6H PRN #20 tab 05/29/20 oxyCODONE [Roxicodone] 5 mg PO Q4-6H PRN #20 tab 05/29/20 - Allergies Allergies/Adverse Reactions: Allergies Allergy/AdvReac Type Severity Reaction Status Date / Time No Known Drug Allergies Allergy Verified 05/28/20 17:57 - Social History Does the pt smoke?: No Smoking Status: Never smoker Does the pt drink ETOH?: No Does the pt have substance abuse?: No - Immunizations Immunizations are current?: Yes - POLST Patient has POLST: No PD ED PE NORMAL - Vitals Vital signs reviewed: Yes - General General: Alert and oriented X 3, No acute distress, Well developed/nourished - HEENT HEENT: Moist mucous membranes - Neck Neck: Supple, no meningeal sign - Cardiac Cardiac: RRR, Strong equal pulses - Respiratory Respiratory: No respiratory distress, Clear bilaterally - Abdomen Abdomen: Soft, Non distended, Other (tenderness palpation right lower quadrant, no peritoneal signs. Tenderness is near McBurney's point) - Derm Derm: Warm and dry - Extremities Extremities: No edema - Neuro Neuro: Alert and oriented X 3 - Psych Psych: Normal mood, Normal affect Results - Vitals Vitals: Vital Signs - 24 hr 05/28/20 05/28/20 05/28/20 20:38 21:13 21:28 Temperature 37.1 C 37.1 C 36.6 C Heart Rate 102 H 87 Heart Rate [ 106 H Brachial] Respiratory 16 16 16 Rate Blood Pressure 160/100 H 165/83 H Blood Pressure 150/93 H [Right Brachial artery] O2 Saturation 97 96 96 05/29/20 05/29/20 05/29/20 00:56 03:53 05:00 Temperature 36.8 C 36.8 C 36.8 C Heart Rate Heart Rate [ 106 H 98 98 Brachial] Respiratory 16 16 18 Rate Blood Pressure Blood Pressure 130/74 134/80 H 134/80 H [Right Brachial artery] O2 Saturation 97 97 97 05/29/20 05/29/20 05/29/20 08:11 12:54 14:11 Temperature 36.8 C 36.3 C L 37.2 C Heart Rate 110 H Heart Rate [ 88 97 Brachial] Respiratory 18 16 20 Rate Blood Pressure 145/73 H Blood Pressure 148/78 H 149/79 H [Right Brachial artery] O2 Saturation 96 100 94 05/29/20 05/29/20 05/29/20 14:15 14:20 14:25 Temperature 37 C Heart Rate 108 H 116 H 120 H Heart Rate [ Brachial] Respiratory 21 16 15 Rate Blood Pressure 147/62 H 151/70 H 153/78 H Blood Pressure [Right Brachial artery] O2 Saturation 95 100 98 05/29/20 05/29/20 05/29/20 14:30 14:34 14:39 Temperature 37.3 C Heart Rate 118 H 115 H 108 H Heart Rate [ Brachial] Respiratory 22 18 15 Rate Blood Pressure 171/63 H 178/80 H 179/87 H Blood Pressure [Right Brachial artery] O2 Saturation 94 94 93 05/29/20 05/29/20 05/29/20 14:56 15:11 15:26 Temperature 36.6 C 36.9 C 36.9 C Heart Rate 94 96 98 Heart Rate [ Brachial] Respiratory 18 18 16 Rate Blood Pressure 139/85 H 123/99 H 130/71 Blood Pressure [Right Brachial artery] O2 Saturation 94 96 94 05/29/20 05/29/20 05/29/20 15:41 16:11 16:41 Temperature 36.5 C 37.2 C 37.1 C Heart Rate 95 87 93 Heart Rate [ Brachial] Respiratory 16 20 16 Rate Blood Pressure 128/69 129/69 139/80 H Blood Pressure [Right Brachial artery] O2 Saturation 95 96 95 05/29/20 05/29/20 17:41 18:41 Temperature 36.9 C 37.4 C Heart Rate 102 H 99 Heart Rate [ Brachial] Respiratory 16 16 Rate Blood Pressure 146/71 H 135/73 H Blood Pressure [Right Brachial artery] O2 Saturation 95 95 Oxygen O2 Source Room air - Labs Labs: Laboratory Tests 05/28/20 05/28/20 05/28/20 18:03 18:20 18:20 WBC 7.1 RBC 5.10 Hgb 14.9 Hct 44.7 MCV 87.6 MCH 29.2 MCHC 33.3 RDW 12.4 Plt Count 272 MPV 9.1 Neut # (Auto) 4.9 Lymph # (Auto) 1.5 [place] # (Auto) 0.6 Eos # (Auto) 0.1 Baso # (Auto) 0.0 Absolute Nucleated RBC 0.00 Nucleated RBC % 0.0 Sodium 139 Potassium 3.7 Chloride 99 L Carbon Dioxide 27 Anion Gap 13.0 BUN 13 Creatinine 1.0 Estimated GFR (MDRD) 86 L Glucose 147 H Calcium 9.3 Total Bilirubin 0.6 AST 45 H ALT 79 H Alkaline Phosphatase 109 Total Protein 8.8 H Albumin 4.5 Globulin 4.3 H Albumin/Globulin Ratio 1.0 Lipase 47 Urine Color YELLOW Urine Clarity CLEAR Urine pH 6.0 Ur Specific [place] 1.015 Urine Protein NEGATIVE Urine Glucose (UA) NEGATIVE Urine Ketones NEGATIVE Urine Occult Blood NEGATIVE Urine Nitrite NEGATIVE Urine Bilirubin NEGATIVE Urine Urobilinogen 1 (NORMAL) Ur Leukocyte Esterase NEGATIVE Ur Microscopic Review NOT INDICATED Urine Culture Comments NOT INDICATED Nasal Adenovirus (PCR) Nasal B. parapertussis DNA (PCR) Nasal Coronavir 229E PCR Nasal Coronavir HKU1 PCR Nasal Coronavir NL63 PCR Nasal Coronavir OC43 PCR Nasal Enterovir/Rhinovir PCR Nasal Influenza B PCR Nasal Influenza A PCR Nasal Parainfluen 1 PCR Nasal Parainfluen 2 PCR Nasal Parainfluen 3 PCR Nasal Parainfluen 4 PCR Nasal RSV (PCR) Nasal B.pertussis DNA PCR Nasal C.pneumoniae (PCR) [place] Human Metapneumo PCR Nasal M.pneumoniae (PCR) Nasal SARS-CoV-2 (PCR) Urine Opiates Screen NEGATIVE Ur Oxycodone Screen NEGATIVE Urine Methadone Screen NEGATIVE Ur Propoxyphene Screen NEGATIVE Ur Barbiturates Screen NEGATIVE Ur Tricyclics Screen NEGATIVE Ur Phencyclidine Scrn NEGATIVE Ur Amphetamine Screen NEGATIVE U Methamphetamines Scrn NEGATIVE U Benzodiazepines Scrn NEGATIVE Urine Cocaine Screen NEGATIVE U Cannabinoids Screen NEGATIVE 05/28/20 20:36 WBC RBC Hgb Hct MCV MCH MCHC RDW Plt Count MPV Neut # (Auto) Lymph # (Auto) [place] # (Auto) Eos # (Auto) Baso # (Auto) Absolute Nucleated RBC Nucleated RBC % Sodium Potassium Chloride Carbon Dioxide Anion Gap BUN Creatinine Estimated GFR (MDRD) Glucose Calcium Total Bilirubin AST ALT Alkaline Phosphatase Total Protein Albumin Globulin Albumin/Globulin Ratio Lipase Urine Color Urine Clarity Urine pH Ur Specific [place] Urine Protein Urine Glucose (UA) Urine Ketones Urine Occult Blood Urine Nitrite Urine Bilirubin Urine Urobilinogen Ur Leukocyte Esterase Ur Microscopic Review Urine Culture Comments Nasal Adenovirus (PCR) NOT DETECTED Nasal B. parapertussis DNA (PCR) NOT DETECTED Nasal Coronavir 229E PCR NOT DETECTED Nasal Coronavir HKU1 PCR NOT DETECTED Nasal Coronavir NL63 PCR NOT DETECTED Nasal Coronavir OC43 PCR NOT DETECTED Nasal Enterovir/Rhinovir PCR NOT DETECTED Nasal Influenza B PCR NOT DETECTED Nasal Influenza A PCR NOT DETECTED Nasal Parainfluen 1 PCR NOT DETECTED Nasal Parainfluen 2 PCR NOT DETECTED Nasal Parainfluen 3 PCR NOT DETECTED Nasal Parainfluen 4 PCR NOT DETECTED Nasal RSV (PCR) NOT DETECTED Nasal B.pertussis DNA PCR NOT DETECTED Nasal C.pneumoniae (PCR) NOT DETECTED [place] Human Metapneumo PCR NOT DETECTED Nasal M.pneumoniae (PCR) NOT DETECTED Nasal SARS-CoV-2 (PCR) NOT DETECTED Urine Opiates Screen Ur Oxycodone Screen Urine Methadone Screen Ur Propoxyphene Screen Ur Barbiturates Screen Ur Tricyclics Screen Ur Phencyclidine Scrn Ur Amphetamine Screen U Methamphetamines Scrn U Benzodiazepines Scrn Urine Cocaine Screen U Cannabinoids Screen - Rads (name of study) CT abd/pelvis Radiology: Prelim report reviewed, EMP read contemporaneously PD MEDICAL DECISION MAKING - ED course Complexity details: reviewed results, re-evaluated patient, considered differential, d/w patient, d/w philatelic consultant ED course: Patient with acute appendicitis without perforation or abscess on CT scan. Discussed the case with Dr. Pedro, general surgery who will plan IV antibiotics tonight and OR in the morning. This document was made in part using voice recognition software. While efforts are made to proofread this document, sound alike and grammatical errors may occur. Departure - Departure Disposition: ED Transfer to [facility] Clinical Impression: Appendicitis Qualifiers: Appendicitis type: acute appendicitis Acute appendicitis type: with localized peritonitis Appendicitis gangrene presence: without gangrene Appendicitis perforation presence: without perforation Appendicitis abscess presence: without abscess Qualified Code(s): K35.30 - Acute appendicitis with localized peritonitis, without perforation or gangrene Condition: Stable Discharge Date/Time: 05/28/20 21:25
[2020-05-28] MEDS ORDERED: IOVERSOL 320 100 ML VIAL IVP ONE ×2 (19:22→19:50)
[2020-05-28] MEDS ORDERED: PIPERACILLIN/TAZOBACTAM 3.375 GM in SODIUM CHLORIDE 0.9% MINIBAG 100 ML IV STA (20:19)
[2020-05-28] MEDS ORDERED: SODIUM CHLORIDE 0.9% 1,000 ML IV STA (20:21)
[2020-05-28] MEDS ORDERED: HYDROmorphone 0.5 MG/0.5 ML SYRINGE IVP PRN (20:29)
[2020-05-28] MEDS ORDERED: KETOROLAC 15 MG/ML VIAL IVP PRN (20:29)
[2020-05-28] MEDS ORDERED: PROMETHAZINE INJ 25 MG in SODIUM CHLORIDE 0.9% 50 ML IV PRN (20:34)
--- NOTE | 2020-05-28 20:56 | CT Report ---
PROCEDURE: Abdomen/Pelvis W INDICATIONS: RLQ abd pain CONTRAST: IV CONTRAST: Optiray 320 ml: 100 PO CONTRAST: *NO PO CONTRAST TECHNIQUE: After the administration of intravenous contrast, 5 mm thick sections acquired from the diaphragms to the symphysis. 5 mm thick coronal and sagittal reformats were acquired. For radiation dose reducti on, the following was used: automated exposure control, adjustment of mA and/or kV according to calista ent size. COMPARISON: CT abdomen/pelvis 05/30/2019 FINDINGS: Image quality: Excellent. ABDOMEN: Lung bases: Lung bases are clear. Heart size is normal. Solid organs: Liver and spleen are normal in size and enhancement. Gallbladder appears normal. Ralph iary system is non dilated. Pancreas enhances normally. No adrenal nodules. Kidneys demonstrate no rmal size and enhancement, without hydronephrosis. Peritoneum and bowel: The appendix is dilated to 9 mm in diameter with multiple appendicoliths and t race periappendiceal fat stranding. No focal fluid collection or abscess is seen. There is no pneumop eritoneum. There are no signs of bowel obstruction. Nodes and vessels: No retroperitoneal or mesenteric adenopathy by size criteria. Aorta and inferior vena cava are normal in size. Miscellaneous: A small fat-containing periumbilical hernia is present. PELVIS: Genitourinary: Bladder wall thickness is normal. Miscellaneous: No inguinal hernias or adenopathy. Bones: No suspicious bony lesions. No vertebral body compression fractures. IMPRESSION: Acute uncomplicated appendicitis. There is no significant discrepancy when compared with the preliminary report provided by [facility]. Reviewed by: Leo Bhakta MD on 05/28/2020 8:54 PM PST Approved by: Leo Bhakta MD on 05/28/2020 8:54 PM PST Station ID: [id number]
[2020-05-28] MEDS ORDERED: PRAZOSIN 1 MG CAPSULE PO SCH (21:00)
[2020-05-28] MEDS ORDERED: traZODone 50 MG TABLET PO SCH (21:00)
[2020-05-28 21:35] LABS: C. PNEUMONIAE- RESP PCR PANEL NOT DETECTED
[2020-05-28] MEDS: ACETAMINOPHEN 325 MG TABLET PO PRN (21:38)
[2020-05-28] MEDS: LACTATED RINGERS 1,000 ML IV SCH (22:18)
[2020-05-29] MEDS: PIPERACILLIN/TAZOBACTAM 3.375 GM in SODIUM CHLORIDE 0.9% MINIBAG 100 ML IV SCH ×3 (00:55→15:12)
[2020-05-29] MEDS ORDERED: PANTOPRAZOLE 40 MG VIAL IVP SCH (07:00)
[2020-05-29] MEDS: LACTATED RINGERS 1,000 ML IV SCH (08:44)
[2020-05-29] MEDS ORDERED: CITALOPRAM HYDROBROMIDE 20 MG TABLET PO SCH (09:00)
--- NOTE | 2020-05-29 10:07 | ANESTHESIA ---
Pre-Anesthesia VS, & Labs - Diagnosis appendicitis - Procedure lap appy Vital Signs: Temp Pulse Resp BP Pulse Ox 36.8 C 88 18 148/78 H 96 05/29/20 08:11 05/29/20 08:11 05/29/20 08:11 05/29/20 08:11 05/29/20 08:11 Height: 5 ft 10 in Weight (kg): 118.388 kg Body Mass Index: 37.4 BMI Classification: Obese - NPO >8 hours - Lab Results Current Lab Results: Laboratory Tests 05/28/20 18:20: Sodium 139, Potassium 3.7, Chloride 99 L, Carbon Dioxide 27, Anion Gap 13.0, BUN 13, Creatinine 1.0, Estimated GFR (MDRD) 86 L, Glucose 147 H , Calcium 9.3, Total Bilirubin 0.6, AST 45 H, ALT 79 H, Alkaline Phosphatase 109, Total Protein 8.8 H, Albumin 4.5, Globulin 4.3 H, Albumin/Globulin Ratio 1.0, Lipase 47 05/28/20 18:20: WBC 7.1, RBC 5.10, Hgb 14.9, Hct 44.7, MCV 87.6, MCH 29.2, MCHC 33.3, RDW 12.4, Plt Count 272, MPV 9.1, Neut # (Auto) 4.9, Lymph # (Auto) 1.5, [place] # (Auto) 0.6, Eos # (Auto) 0.1, Baso # (Auto) 0.0, Absolute Nucleated RBC 0.00, Nucleated RBC % 0.0 05/28/20 18:03: Urine Opiates Screen NEGATIVE, Ur Oxycodone Screen NEGATIVE, Urine Methadone Screen NEGATIVE, Ur Propoxyphene Screen NEGATIVE, Ur B arbiturates Screen NEGATIVE, Ur Tricyclics Screen NEGATIVE, Ur Phencyclidine Scrn NEGATIVE, Ur Amphetamine Screen NEGATIVE, U Methamphetamines Scrn NEGATIVE, U Benzodiazepines Scrn NEGATIVE, Urine Cocaine Screen NEGATIVE, U Cannabinoids Screen NEGATIVE Fish Bones: 05/28/20 18:20 05/28/20 18:20 Home Medications and Allergies Home Medications: Ambulatory Orders Omeprazole Magnesium 20 mg PO DAILY 05/28/20 Active Medications Acetaminophen (Acetaminophen 325 Mg Tablet) 650 mg PO Q6H PRN PRN Reason: Pain or Fever > 38C (100.4F) Last Admin: 05/28/20 21:38 Dose: 650 mg Documented by: Citalopram Hydrobromide (Citalopram Hydrobromide 20 Mg Tablet) 40 mg PO DAILY [facility] Last Admin: 05/29/20 08:43 Dose: 40 mg Documented by: Hydromorphone HCl (Hydromorphone 0.5 Mg/0.5 Ml Syringe) 0.5 mg IVP Q1H PRN PRN Reason: PAIN Last Admin: 05/28/20 21:38 Dose: 0.5 mg Documented by: Lactated Ringer's (Lr) 1,000 mls @ 100 mls/hr IV .Q10H [facility] Last Admin: 05/29/20 08:44 Dose: 100 mls/hr Documented by: Piperacillin Sod/Tazobactam (Sod 3.375 gm/ Sodium Chloride) 100 mls @ 25 mls/hr IV Q8H [facility] Last Admin: 05/29/20 08:43 Dose: 25 mls/hr Documented by: Promethazine HCl 25 mg/ Sodium (Chloride) 51 mls @ 100 mls/hr IV Q6H PRN PRN Reason: Nausea / Vomiting Ketorolac Tromethamine (Ketorolac 15 Mg/Ml Vial) 15 mg IVP Q6H PRN PRN Reason: PAIN Stop: 06/02/20 20:28 Last Admin: 05/29/20 03:56 Dose: 15 mg Documented by: Pantoprazole Sodium (Pantoprazole 40 Mg Vial) 40 mg IVP QDAC [facility] Last Admin: 05/29/20 06:57 Dose: 40 mg Documented by: Prazosin HCl (Prazosin 1 Mg Capsule) 1 mg PO QPM [facility] Last Admin: 05/28/20 22:16 Dose: 1 mg Documented by: Trazodone HCl (Trazodone 50 Mg Tablet) 100 mg PO QPM [facility] Last Admin: 05/28/20 22:16 Dose: 100 mg Documented by: Citalopram Hydrobromide [Citalopram HBr] 40 mg PO DAILY 03/31/18 Paliperidone Palmitate [Invega Sustenna] 117 mg IM ONCE MDD EVERY MONTH 03/31/18 Prazosin [Minipress] 1 mg PO QPM 03/31/18 Trazodone HCl 100 mg PO QPM 03/31/18 Omeprazole Magnesium 20 mg PO DAILY 05/28/20 Allergies/Adverse Reactions: Allergies Allergy/AdvReac Type Severity Reaction Status Date / Time No Known Drug Allergies Allergy Verified 05/28/20 17:57 Anes History & Medical History - Anesthetic History Anesthesia Complications: reports: No previous complications - Medical History Cardiovascular: reports: None Pulmonary: reports: None Gastrointestinal: reports: GERD Urinary: reports: None Neuro: reports: None Musculoskeletal: reports: None Endocrine/Autoimmune: reports: None Blood Disorders: reports: None Skin: reports: None Smoking Status: Former smoker (Quit 9 years ago) Psychosocial: reports: Amphetamine (meth quit 2019), Other (schizoaffective disorder) - Surgical History Orthopedic: Other (left arm excision of mass) Exam General: Alert, Oriented x3, Cooperative, No acute distress Dental: Poor dentition Mouth Openin Fingerbreadth Neck Mobility: Normal Mallampati classification: II Thyromental Distance: 4-6 cm Mental/Cognitive Status: Alert/Oriented X3, Normal for patient Plan Anesthesia Type: General Consent for Procedure(s) Verified and Reviewed: Yes Code Status: Attempt Resuscitation ASA classification: 2-Mild systemic disease Is this case an emergency?: No
[2020-05-29] MEDS ORDERED: BUPIVACAINE 0.5% PF 30 ML VIAL ONE (10:35)
[2020-05-29] MEDS ORDERED: LIDOCAINE 2%-EPI 1:100000 20 ML MDV ONE (10:35)
--- NOTE | 2020-05-29 10:59 | HISTORY & PHYSICAL EXAMINATION ---
HPI - Admitted From Admitted from: ED - History Obtained From History obtained from: Patient Exam limitations: No limitations - History of Present Illness Pain/Problem Location Description: Abdominal pain in the perumbilical region and right lower quadrant Severity at the worst: reports: Moderate Pain Quality: reports: Sharp, Aching Context-Pain started w/: reports: Rest Timing: reports: Gradual onset Duration: reports: Days: (3) Improved with: reports: Nothing Worsened by: reports: Exertion, Eating, Movement, Palpation Associated symptoms: denies: Nausea, Vomiting HPI Comment/Other: 34 year old gentleman with 3 days of abdominal pain becoming gradually more severe and localizing to the right lower quadrant PMH/PSH - Past Medical History Cardiovascular: positive: None Respiratory: positive: None Neuro: positive: None Endocrine/Autoimmune: positive: None GI: positive: GERD : positive: None HEENT: positive: None Psych: positive: Depression, Anxiety, Bipolar disorder, Schizophrenia, Obsessive compulsive disorder Musculoskeletal: positive: None Derm: positive: None MRSA Hx?: No - Past Surgical History Ortho: positive: Other (left arm excision of mass) Social & Family Hx - Social History Does the pt smoke?: No Smoking Status: Former smoker (Quit 9 years ago) Does the pt drink ETOH?: No Does the pt have substance abuse?: No - POLST Patient has POLST: No Meds/Allgy - Home Medications Home Medications: Ambulatory Orders Medication Instructions Recorded Confirmed Citalopram Hydrobromide 40 mg PO DAILY 03/31/18 05/28/20 [Citalopram HBr] Paliperidone Palmitate [Invega 117 mg IM ONCE MDD EVERY MONTH 03/31/18 05/28/20 Sustenna] Prazosin [Minipress] 1 mg PO QPM 03/31/18 05/28/20 Trazodone HCl 100 mg PO QPM 03/31/18 05/28/20 Omeprazole Magnesium 20 mg PO DAILY 05/28/20 05/28/20 - Allergies Allergies/Adverse Reactions: Allergies Allergy/AdvReac Type Severity Reaction Status Date / Time No Known Drug Allergies Allergy Verified 05/28/20 17:57 Review of Systems - Constitutional Constitutional: reports: Fatigue, Poor appetite - Eyes Eyes: denies: Pain, Irritation - Ears, Nose & Throat Ears, Nose & Throat: denies: Tinnitus, Vertigo - Cardiovascular Cariovascular: denies: Irregular heart rate, Palpitations, Chest pain - Respiratory Respiratory: denies: Cough, Sputum production, Wheezing - Gastrointestinal Gastrointestinal: reports: Abdominal pain. denies: Constipation, Diarrhea, Change in bowel habits, Black stools, Bloody stools, Nausea, Vomiting - Genitourinary Genitourinary: denies: Dysuria, Frequency, Urgency - Musculoskeletal Musculoskeletal: denies: Muscle pain, Back pain - Integumentary Integumentary: denies: Rash - Hematologic/Lymphatic Hematologic/Lymphatic: denies: Anemia, Bruising - All Other Systems All Other Systems: reports: Reviewed and negative Exam - Vital Signs Reviewed Vital Signs: Yes Vital Signs: Vital Signs x48h Temp Pulse Resp BP Pulse Ox 05/29/20 08:11 36.8 C 88 18 148/78 H 96 05/29/20 05:00 36.8 C 98 18 134/80 H 97 05/29/20 03:53 36.8 C 98 16 134/80 H 97 - Physical Exam General Appearance: positive: No acute distress, Alert Eyes Bilateral: positive: Normal inspection, PERRL, EOMI ENT: positive: ENT inspection nml, No signs of dehydration Neck: positive: Nml inspection, Trachea midline Respiratory: positive: Chest non-tender, No respiratory distress, Breath sounds nml Cardiovascular: positive: Regular rate & rhythm, No murmur, No gallop Peripheral Pulses: positive: 1+ Abdomen: positive: Nml bowel sounds, Tenderness, Guarding. negative: Rebound Back: negative: CVA tenderness (R), CVA tenderness (L) Skin: positive: Color nml Extremities: positive: Non-tender Neurologic/Psychiatric: positive: Oriented x3 Results - Lab Results Lab results reviewed: Yes Fish Bones: 05/28/20 18:20 05/28/20 18:20 Other Lab Results: Lab Results x24hrs 05/28/20 05/28/20 05/28/20 Range/Units 20:36 18:20 18:20 WBC 7.1 (4.8-10.8) x10^3/uL RBC 5.10 (4.70-6.10) 10^6/uL Hgb 14.9 (14.0-18.0) g/dL Hct 44.7 (42.0-52.0) % MCV 87.6 (80.0-94.0) fL MCH 29.2 (27.0-31.0) pg MCHC 33.3 (32.0-36.0) g/dL RDW 12.4 (12.0-15.0) % Plt Count 272 (130-450) 10^3/uL MPV 9.1 (7.4-11.4) fL Neut # (Auto) 4.9 (1.5-6.6) 10^3/uL Lymph # (Auto) 1.5 (1.5-3.5) 10^3/uL [place] # (Auto) 0.6 (0.0-1.0) 10^3/uL Eos # (Auto) 0.1 (0.0-0.7) 10^3/uL Baso # (Auto) 0.0 (0.0-0.1) 10^3/uL Absolute Nucleated RBC 0.00 x10^3/uL Nucleated RBC % 0.0 /100WBC Sodium 139 (135-145) mmol/L Potassium 3.7 (3.5-5.0) mmol/L Chloride 99 L (101-111) mmol/L Carbon Dioxide 27 (21-32) mmol/L Anion Gap 13.0 (6-13) BUN 13 (6-20) mg/dL Creatinine 1.0 (0.6-1.2) mg/dL Estimated GFR (MDRD) 86 L (>89) Glucose 147 H (70-100) mg/dL Calcium 9.3 (8.5-10.3) mg/dL Total Bilirubin 0.6 (0.2-1.0) mg/dL AST 45 H (10-42) IU/L ALT 79 H (10-60) IU/L Alkaline Phosphatase 109 (42-121) IU/L Total Protein 8.8 H (6.7-8.2) g/dL Albumin 4.5 (3.2-5.5) g/dL Globulin 4.3 H (2.1-4.2) g/dL Albumin/Globulin Ratio 1.0 (1.0-2.2) Lipase 47 (22-51) U/L Urine Color Urine Clarity (CLEAR) Urine pH (5.0-7.5) PH Ur Specific [place] (1.002-1.030) Urine Protein (NEGATIVE) mg/dL Urine Glucose (UA) (NEGATIVE) mg/dL Urine Ketones (NEGATIVE) mg/dL Urine Occult Blood (NEGATIVE) Urine Nitrite (NEGATIVE) Urine Bilirubin (NEGATIVE) Urine Urobilinogen (NORMAL) E.U./dL Ur Leukocyte Esterase (NEGATIVE) Ur Microscopic Review Urine Culture Comments Nasal Adenovirus (PCR) NOT DETECTED Nasal B. parapertussis DNA (PCR) NOT DETECTED Nasal Coronavir 229E PCR NOT DETECTED Nasal Coronavir HKU1 PCR NOT DETECTED Nasal Coronavir NL63 PCR NOT DETECTED Nasal Coronavir OC43 PCR NOT DETECTED Nasal Enterovir/Rhinovir PCR NOT DETECTED Nasal Influenza B PCR NOT DETECTED Nasal Influenza A PCR NOT DETECTED Nasal Parainfluen 1 PCR NOT DETECTED Nasal Parainfluen 2 PCR NOT DETECTED Nasal Parainfluen 3 PCR NOT DETECTED Nasal Parainfluen 4 PCR NOT DETECTED Nasal RSV (PCR) NOT DETECTED Nasal B.pertussis DNA PCR NOT DETECTED Nasal C.pneumoniae (PCR) NOT DETECTED Edmundo Human Metapneumo PCR NOT DETECTED Nasal M.pneumoniae (PCR) NOT DETECTED Nasal SARS-CoV-2 (PCR) NOT DETECTED Urine Opiates Screen (NEGATIVE) Ur Oxycodone Screen (NEGATIVE) Urine Methadone Screen (NEGATIVE) Ur Propoxyphene Screen (NEGATIVE) Ur Barbiturates Screen (NEGATIVE) Ur Tricyclics Screen (NEGATIVE) Ur Phencyclidine Scrn (NEGATIVE) Ur Amphetamine Screen (NEGATIVE) U Methamphetamines Scrn (NEGATIVE) U Benzodiazepines Scrn (NEGATIVE) Urine Cocaine Screen (NEGATIVE) U Cannabinoids Screen (NEGATIVE) 05/28/20 Range/Units 18:03 WBC (4.8-10.8) x10^3/uL RBC (4.70-6.10) 10^6/uL Hgb (14.0-18.0) g/dL Hct (42.0-52.0) % MCV (80.0-94.0) fL MCH (27.0-31.0) pg MCHC (32.0-36.0) g/dL RDW (12.0-15.0) % Plt Count (130-450) 10^3/uL MPV (7.4-11.4) fL Neut # (Auto) (1.5-6.6) 10^3/uL Lymph # (Auto) (1.5-3.5) 10^3/uL [place] # (Auto) (0.0-1.0) 10^3/uL Eos # (Auto) (0.0-0.7) 10^3/uL Baso # (Auto) (0.0-0.1) 10^3/uL Absolute Nucleated RBC x10^3/uL Nucleated RBC % /100WBC Sodium (135-145) mmol/L Potassium (3.5-5.0) mmol/L Chloride (101-111) mmol/L Carbon Dioxide (21-32) mmol/L Anion Gap (6-13) BUN (6-20) mg/dL Creatinine (0.6-1.2) mg/dL Estimated GFR (MDRD) (>89) Glucose (70-100) mg/dL Calcium (8.5-10.3) mg/dL Total Bilirubin (0.2-1.0) mg/dL AST (10-42) IU/L ALT (10-60) IU/L Alkaline Phosphatase (42-121) IU/L Total Protein (6.7-8.2) g/dL Albumin (3.2-5.5) g/dL Globulin (2.1-4.2) g/dL Albumin/Globulin Ratio (1.0-2.2) Lipase (22-51) U/L Urine Color YELLOW Urine Clarity CLEAR (CLEAR) Urine pH 6.0 (5.0-7.5) PH Ur Specific [place] 1.015 (1.002-1.030) Urine Protein NEGATIVE (NEGATIVE) mg/dL Urine Glucose (UA) NEGATIVE (NEGATIVE) mg/dL Urine Ketones NEGATIVE (NEGATIVE) mg/dL Urine Occult Blood NEGATIVE (NEGATIVE) Urine Nitrite NEGATIVE (NEGATIVE) Urine Bilirubin NEGATIVE (NEGATIVE) Urine Urobilinogen 1 (NORMAL) (NORMAL) E.U./dL Ur Leukocyte Esterase NEGATIVE (NEGATIVE) Ur Microscopic Review NOT INDICATED Urine Culture Comments NOT INDICATED Nasal Adenovirus (PCR) Nasal B. parapertussis DNA (PCR) Nasal Coronavir 229E PCR Nasal Coronavir HKU1 PCR Nasal Coronavir NL63 PCR Nasal Coronavir OC43 PCR Nasal Enterovir/Rhinovir PCR Nasal Influenza B PCR Nasal Influenza A PCR Nasal Parainfluen 1 PCR Nasal Parainfluen 2 PCR Nasal Parainfluen 3 PCR Nasal Parainfluen 4 PCR Nasal RSV (PCR) Nasal B.pertussis DNA PCR Nasal C.pneumoniae (PCR) Edmundo Human Metapneumo PCR Nasal M.pneumoniae (PCR) Nasal SARS-CoV-2 (PCR) Urine Opiates Screen NEGATIVE (NEGATIVE) Ur Oxycodone Screen NEGATIVE (NEGATIVE) Urine Methadone Screen NEGATIVE (NEGATIVE) Ur Propoxyphene Screen NEGATIVE (NEGATIVE) Ur Barbiturates Screen NEGATIVE (NEGATIVE) Ur Tricyclics Screen NEGATIVE (NEGATIVE) Ur Phencyclidine Scrn NEGATIVE (NEGATIVE) Ur Amphetamine Screen NEGATIVE (NEGATIVE) U Methamphetamines Scrn NEGATIVE (NEGATIVE) U Benzodiazepines Scrn NEGATIVE (NEGATIVE) Urine Cocaine Screen NEGATIVE (NEGATIVE) U Cannabinoids Screen NEGATIVE (NEGATIVE) - Diagnostic Imaging Results Diagnostic Imaging Results Comments: CT scan consistent with uncomplicated acute appendicitis Impression/Plan - Problem List Problem List: I have recommended laparoscopy with appendectomy. We have discussed the risks and benefits and the patient has expressed both verbal and written consent to proceed.
[2020-05-29] MEDS ORDERED: fentaNYL 100 MCG/2 ML VIAL ONE (12:42)
[2020-05-29] MEDS ORDERED: LIDOCAINE-MPF 2% 5 ML VIAL ONE (12:42)
[2020-05-29] MEDS ORDERED: ROCURONIUM 50 MG/5 ML VIAL ONE (12:42)
[2020-05-29] MEDS ORDERED: MIDAZOLAM 2 MG/2 ML VIAL ONE (12:42)
[2020-05-29] MEDS ORDERED: PROPOFOL 200 MG/20 ML VIAL IVP ONE (12:42)
[2020-05-29] MEDS ORDERED: BUPIVACAINE 0.5% PF 30 ML VIAL INFIL ONE ×2 (13:10→13:53)
[2020-05-29] MEDS ORDERED: LIDOCAINE 2%-EPI 1:100000 20 ML MDV SUBQ ONE ×2 (13:11→13:53)
[2020-05-29] MEDS ORDERED: ONDANSETRON 4 MG/2 ML VIAL IVP PRN ×2 (13:34→14:08)
[2020-05-29] MEDS ORDERED: MORPHINE 2 MG/ML CARPUJECT IVP PRN (13:34)
[2020-05-29] MEDS ORDERED: ATROPINE ABBOJECT 1 MG/10 ML SYRINGE IVP PRN (13:34)
[2020-05-29] MEDS ORDERED: HYDROmorphone 0.5 MG/0.5 ML SYRINGE IVP PRN (13:34)
[2020-05-29] MEDS ORDERED: NALOXONE 0.4 MG/ML VIAL IVP PRN (13:34)
[2020-05-29] MEDS ORDERED: fentaNYL 100 MCG/2 ML VIAL IVP PRN (13:34)
[2020-05-29] MEDS ORDERED: DEXAMETHASONE 4 MG/ML VIAL ONE (13:38)
[2020-05-29] MEDS ORDERED: ONDANSETRON 4 MG/2 ML VIAL ONE (13:38)
[2020-05-29] MEDS ORDERED: LACTATED RINGERS 1,000 ML IV SCH (14:00)
[2020-05-29] MEDS ORDERED: NEOSTIGMINE 1 MG/1 ML 10 ML MDV ONE (14:05)
[2020-05-29] MEDS ORDERED: GLYCOPYRROLATE 1 MG/5 ML VIAL ONE (14:05)
--- NOTE | 2020-05-29 14:05 | OPERATIVE REPORT ---
Operative Report - General Procedure Date: 05/29/20 Planned Procedure: Laparoscopic appendectomy and repair of umbilical hernia Pre-Op Diagnosis: Acute appendicitis and umbilical hernia Procedure Performed: Laparoscopy with appendectomy and umbilical hernia repair Post Op Diagnosis: Same - Procedure Note Primary Surgeon: Mayela Anesthesia Provider: HIWOT Schreiber Anesthesia Technique: General ET tube, Local Pathology: Appendix to pathology in formalin Estimated Blood Loss (mL): 10 Findings: Acute appendicitis without perforation 2 cm umbilical defect containing fat and small bowel Complications: None apparent - Other Other Information/Narrative: After obtaining informed consent, the patient is brought to the operating room and placed in the supine position on the operating table. Following successful induction of general endotracheal anesthesia, appropriate padding of all bony prominences, and placement of appropriate monitors, the abdomen was prepped and draped in the standard surgical fashion. A timeout was held per scope protocol. All elements of the surgical safety checklist were followed before, during, and after the procedure. Following infiltration with local anesthetic to create a field block, an incision was created inferior to the umbilicus and carried down through the skin and subcutaneous tissue to reveal the Hernia sac. 2-0 Vicryl retention sutures were placed on either side of the midline Within the fascia. A 10 mm blunt Nelson balloon trocar was placed in the abdominal cavity and it was insufflated to 15 mmHg pressure. The patient was placed in Trendelenburg position with the left side rotated toward the floor. The camera was placed in the abdominal cavity and we immediately visualized the cecum in the right lower quadrant. It was rotated medially to reveal a somewhat dilated and turgid appendix. The appendix was grasped and elevated revealing its attachment to the cecum. A window was created in the mesoappendix at this location. A laparoscopic stapling device was used to ligate the appendix and liberated from its attachment to the cecum. An additional load of the device were used to divide its mesentery.The appendix was placed in an Endo Catch bag and removed via the umbilical port with a camera in the epigastric position. The camera was replaced in the operative site examined. It was irrigated with warm saline leola ution and aspirated free of all fluid and particulate matter. The table was flattened and the abdomen evaluated once again. The trochars were removed under direct vision and abdomen was desufflated. We now turned our attention to the umbilical defect. The fascial edges were carefully defined and the peritoneum and hernia sac sharply removed. Once the edges were completely defined, the entire defect was approximately 2 cm. We elected to close this primarily with Prolene suture. 6 interrupted Prolene sutures were placed in the fascia to reapproximate the defect. The umbilicus was reconstructed using 3-0 Vicryl suture. Monocryl was placed in the skin of the umbilicus as well as all of the other trocar incisions. All sponge, needles, and instrument counts were correct at the conclusion of the case. The patient was allowed to wake from anesthesia without difficulty and taken to the postanesthesia care unit in good condition.
[2020-05-29] MEDS ORDERED: ACETAMINOPHEN 325 MG TABLET PO PRN (14:08)
[2020-05-29] MEDS ORDERED: IBUPROFEN 600 MG TABLET PO PRN (14:08)
[2020-05-29] MEDS ORDERED: oxyCODONE 5 MG TABLET PO PRN (14:08)
[2020-05-29] MEDS ORDERED: LACTATED RINGERS 1,000 ML IV ONE (14:15)
--- NOTE | 2020-05-29 14:33 | ANESTHESIA POST OP EVALUATION ---
Anesthesia Post Eval - Post Anesthesia Eval Vitals: Last Vital Signs Temp 37 C 05/29/20 14:25 Pulse 118 H 05/29/20 14:30 Resp 22 05/29/20 14:30 BP 171/63 H 05/29/20 14:30 Pulse Ox 94 05/29/20 14:30 CV Function Including HR & BP: positive: Stable Pain Control: positive: Satisfactory Nausea & Vomiting: positive: Negative Mental Status: positive: Baseline Respiratory Status: Airway Patent Hydration Status: Satisfactory Anesthesia Complications: positive: None
[2020-05-29] MEDS: ACETAMINOPHEN 325 MG TABLET PO PRN (14:38)
[2020-05-29 18:45] VITALS: BP 135/73
== END 2020-05-29 19:05 | disposition home or self-care (01) ==
LOC: ED 17:48 → SDS 20:29 → MS2 20:29 → SDS 05-29 19:05
PROVIDERS: ATTEND Surgery
PROC: 0DTJ4ZZ Resection of Appendix, Percutaneous Endoscopic Approach (ICD-10-PCS; principal; 2020-05-28)
DX: K35.80 Unspecified acute appendicitis (principal); K42.9 Umbilical hernia without obstruction or gangrene; K21.9 Gastro-esophageal reflux disease without esophagitis; F20.9 Schizophrenia, unspecified; F42.9 Obsessive-compulsive disorder, unspecified; F41.9 Anxiety disorder, unspecified; F31.9 Bipolar disorder, unspecified; E66.9 Obesity, unspecified; Z68.37 Body mass index [BMI] 37.0-37.9, adult; Z79.899 Other long term (current) drug therapy; Z20.822 Contact with and (suspected) exposure to COVID-19; Z87.891 Personal history of nicotine dependence
CPT/HCPCS: 36415; 44970; 74177; 80053; 80306; 81003; 83690; 85025; 87631; 96365; 99284; 99285; A9270; J1170; J7120; J8499; Q9967; 0202U; 81001; 87086

== ENCOUNTER 2020-06-26 07:53 | Outpatient (CLI) | payer MEDICARE, MEDICAID ==
[2020-06-26 15:55] LABS: BASOPHILS % (AUTO) 0.8 %; EOSINOPHILS # (AUTO) 0.1 10^3/uL (0.0-0.7); EOSINOPHILS % (AUTO) 2.4 %; HCT - HEMATOCRIT 44.1 % (42.0-52.0); HGB - HEMOGLOBIN 14.3 g/dL (14.0-18.0); LYMPHOCYTES # (AUTO) 1.8 10^3/uL (1.5-3.5); LYMPHOCYTES % (AUTO) 36.1 %; MEAN CORPUSCULAR HEMOGLOBIN 28.7 pg (27.0-31.0); MEAN CORPUSCULAR HGB CONC 32.4 g/dL (32.0-36.0); MEAN CORPUSCULAR VOLUME 88.6 fL (80.0-94.0); MEAN PLATELET VOLUME 9.3 fL (7.4-11.4); MONOCYTES # (AUTO) 0.5 10^3/uL (0.0-1.0); MONOCYTES % (AUTO) 9.2 %; NEUTROPHILS # (AUTO) 2.5 10^3/uL (1.5-6.6); NEUTROPHILS % (AUTO) 51.1 %; PLT - PLATELET COUNT 262 10^3/uL (130-450); RED BLOOD COUNT 4.98 10^6/uL (4.70-6.10); RED CELL DISTRIBUTION WIDTH 13.1 % (12.0-15.0); WHITE BLOOD COUNT 4.9 x10^3/uL (4.8-10.8)
[2020-06-26 16:24] LABS: THYROID STIMULATING HORMONE 1.45 uIU/mL (0.34-5.60)
[2020-06-26 16:28] LABS: ALBUMIN 4.4 g/dL (3.2-5.5); BILIRUBIN,TOTAL 1.2 mg/dL (0.2-1.0); CALCIUM 9.3 mg/dL (8.5-10.3); CREATININE 1.1 mg/dL (0.6-1.2); POTASSIUM 3.6 mmol/L (3.5-5.0); TOTAL PROTEIN 8.6 g/dL (6.7-8.2)
== END 2020-06-26 07:54 | disposition home or self-care (01) ==
LOC: LAB.S 07:53
PROVIDERS: ATTEND Registered Nurse
DX: F31.30 Bipolar disorder, current episode depressed, mild or moderate severity, unspecified (principal); F51.5 Nightmare disorder; F41.9 Anxiety disorder, unspecified
CPT/HCPCS: 36415; 80053; 84443; 85025

== ENCOUNTER 2022-07-12 07:44 | Outpatient (CLI) | payer MEDICARE, MEDICAID ==
[2022-07-12 07:59] LABS: BASOPHILS # (AUTO) 0.1 10^3/uL (0.0-0.1); EOSINOPHILS # (AUTO) 0.1 10^3/uL (0.0-0.7); EOSINOPHILS % (AUTO) 2.3 %; HCT - HEMATOCRIT 45.5 % (42.0-52.0); HGB - HEMOGLOBIN 15.4 g/dL (14.0-18.0); LYMPHOCYTES % (AUTO) 32.8 %; MEAN CORPUSCULAR HEMOGLOBIN 29.9 pg (27.0-31.0); MEAN CORPUSCULAR HGB CONC 33.8 g/dL (32.0-36.0); MEAN CORPUSCULAR VOLUME 88.3 fL (80.0-94.0); MONOCYTES # (AUTO) 0.6 10^3/uL (0.0-1.0); MONOCYTES % (AUTO) 9.1 %; NEUTROPHILS # (AUTO) 3.3 10^3/uL (1.5-6.6); NEUTROPHILS % (AUTO) 54.6 %; PLT - PLATELET COUNT 205 10^3/uL (130-450); RED BLOOD COUNT 5.15 10^6/uL (4.70-6.10); RED CELL DISTRIBUTION WIDTH 12.2 % (12.0-15.0); WHITE BLOOD COUNT 6.1 x10^3/uL (4.8-10.8)
[2022-07-12 08:27] LABS: ALBUMIN 4.4 g/dL (3.2-5.5); ALBUMIN/GLOBULIN RATIO 1.1 (1.0-2.2); ALKALINE PHOSPHATASE 86 IU/L (42-121); ALT ALANINE AMINOTRANSFERASE 39 IU/L (10-60); AST ASPARTATE AMINOTRANSFERASE 30 IU/L (10-42); BILIRUBIN,TOTAL 0.8 mg/dL (0.2-1.0); BUN - BLOOD UREA NITROGEN 16 mg/dL (6-20); CALCIUM 9.2 mg/dL (8.5-10.3); CARBON DIOXIDE - CO2 27 mmol/L (21-32); CHLORIDE 108 mmol/L (101-111); CHOL/HDL RATIO 6.3 (<5.0); CHOLESTEROL 244 mg/dL; CREATININE 0.9 mg/dL (0.6-1.2); GFR - MDRD 96 (>89); GLUCOSE 94 mg/dL (70-100); HDL CHOLESTEROL 39 mg/dL; LDL CHOLESTEROL,CALCULATED 178 mg/dL; LDL/HDL RATIO 4.6 (<3.6); POTASSIUM 4.3 mmol/L (3.5-5.0); SODIUM 139 mmol/L (135-145); TOTAL PROTEIN 8.4 g/dL (6.7-8.2); TRIGLYCERIDES 137 mg/dL; VLDL CHOLESTEROL 27 mg/dL
[2022-07-12 08:38] LABS: THYROID STIMULATING HORMONE 2.6 uIU/mL (0.34-5.60)
== END 2022-07-12 07:45 | disposition home or self-care (01) ==
LOC: LAB 07:44
PROVIDERS: ATTEND Registered Nurse
DX: Z79.899 Other long term (current) drug therapy (principal); Z13.220 Encounter for screening for lipoid disorders
CPT/HCPCS: 36415; 80053; 80061; 83721; 84443; 85025

== ENCOUNTER 2023-06-25 10:34 | Emergency (ER) | payer MEDICARE, MEDICAID ==
--- NOTE | 2023-06-25 11:02 | ED Physician Documentation ---
PD HPI SKIN - Stated complaint Stated Complaint: HAND PX,SWOLLEN - Chief complaint Chief Complaint: Wound - History obtained from History obtained from: Patient - History of Present Illness Timing - onset: How many days ago (2) Timing - duration: Days (2) Timing - details: Gradual onset, Still present Location: LUE (small bite right hand, mostly left hand palmar aspect of fingers littel and ring especially. some doral scratches and bites. No pain in forearm. Has redness, pain and swelling of areas.) Quality / character: Painful, Discolored (redness), Swelling. No: Draining Associated symptoms: N/V/D. No: Fever, Myalgias Contributing factors: Other (cat bites and scratches of both hands, mostly the left. with progressive redness and swelling yesteeday into today.) Review of Systems Constitutional: denies: Fever, Chills, Myalgias Neurologic: denies: Focal weakness, Numbness PD PAST MEDICAL HISTORY - Past Medical History Past Medical History: Yes Cardiovascular: Other Respiratory: None Neuro: None Endocrine/Autoimmune: None GI: None : None HEENT: None Psych: Depression, Anxiety, Bipolar disorder, Schizophrenia, Obsessive compulsive disorder Musculoskeletal: Other Derm: None - Past Surgical History Past Surgical History: Yes Ortho: Other - Present Medications Home Medications: Ambulatory Orders Medication Instructions Recorded Confirmed Citalopram Hydrobromide 40 mg PO DAILY 03/31/18 03/31/23 [Citalopram HBr] Paliperidone Palmitate [Invega 117 mg IM ONCE MDD EVERY MONTH 03/31/18 03/31/23 Sustenna] Prazosin [Minipress] 1 mg PO QPM 03/31/18 03/31/23 Trazodone HCl 100 mg PO QPM 03/31/18 03/31/23 Omeprazole Magnesium 20 mg PO DAILY 05/28/20 03/31/23 Promethazine [Phenergan] 25 mg PO Q6H PRN #20 tab 05/29/20 03/31/23 Amox/Clav 875/125 [Augmentin] 1 each PO Q12H #14 tablet 06/25/23 Mupirocin 2% Oint [Bactroban 2% 1 applic TOP TID #15 gm 06/25/23 Oint] - Allergies Allergies/Adverse Reactions: Allergies Allergy/AdvReac Type Severity Reaction Status Date / Time No Known Drug Allergies Allergy Verified 06/25/23 10:40 - Social History Does the pt smoke?: No Smoking Status: Never smoker Does the pt drink ETOH?: No Does the pt have substance abuse?: No - Immunizations Immunizations are current?: Yes - POLST Patient has POLST: No PD ED PE NORMAL - Vitals Vital signs reviewed: Yes - General General: Alert and oriented X 3, No acute distress, Well developed/nourished - Derm Derm: Normal color, Warm and dry, Other (bites and scratches multiple on dorsam of hand, and palmar aspects of little and ring fingers. WIth redness/swellling/tender. No tenderness to palpation in forearm. No red streakking. ) - Neuro Neuro: Alert and oriented X 3, No motor deficit, No sensory deficit Results - Vitals Vitals: Vital Signs - 24 hr 06/25/23 06/25/23 10:40 11:55 Temperature 36.8 C 36.7 C Heart Rate 100 95 Respiratory 16 16 Rate Blood Pressure 140/84 H 130/82 H O2 Saturation 100 99 Oxygen O2 Source Room air PD Medical Decision Making - ED course Complexity details: considered differential (apparent infections of cat bites on hands, mainly left one. No pain nor tender in forearm. Limited flex/extension of little and ring fingers due to local swelling. Does not cause pain in forearm. Does not seem tenosynovitis, but local soft tissue cellulitis. ), d/w patient Departure - Departure Disposition: 01 Home, Self Care Clinical Impression: Cellulitis of hand Cat bite of hand Qualifiers: Encounter type: initial encounter Laterality: left Qualified Code(s): S61.452A - Open bite of left hand, initial encounter; W55.01XA - Bitten by cat, initial encounter Condition: Stable Record reviewed to determine appropriate education?: Yes Instructions: ED Infec Skin Cellulitis Follow-Up: Temi Case ARNP [Primary Care Provider] - Prescriptions: Amox/Clav 875/125 [Augmentin] 1 each PO Q12H #14 tablet Mupirocin 2% Oint [Bactroban 2% Oint] 1 applic TOP TID #15 gm Comments: It does look like the Bites have gotten infected. Soak hands in warm water couple times a day for the next several days. Use mupirocin antibiotic ointment to the main areas twice daily. Augmentin oral antibiotic twice daily for the next 5 to 7 days until this seems fully healed. Recheck if not improving well over the next 2 to 3 days with mostly better in that timeframe. Continue with the Tylenol and/or ibuprofen or Aleve for pains. I sent your prescriptions to the [facility] pharmacy in [place]. Forms: PCP List Discharge Date/Time: 06/25/23 11:56
[2023-06-25] MEDS: IBUPROFEN 600 MG TABLET PO STA (11:48)
[2023-06-25] MEDS: AMOX/CLAV 875 MG/125 MG TABLET PO STA (11:48)
[2023-06-25] MEDS: MUPIROCIN 2% OINT 1 GM TOP STA (11:49)
[2023-06-25 12:04] VITALS: BP 130/82; O2SAT 99
== END 2023-06-25 11:56 | disposition home or self-care (01) ==
LOC: ED 10:34
DX: S61.452A Open bite of left hand, initial encounter (principal); L03.114 Cellulitis of left upper limb; W55.01XA Bitten by cat, initial encounter; Z79.899 Other long term (current) drug therapy
CPT/HCPCS: 99282; 99283; A9270

== ENCOUNTER 2023-07-30 09:17 | Outpatient (CLI) | payer MEDICARE, MEDICAID ==
[2023-07-30 09:31] LABS: BASOPHILS % (AUTO) 0.8 %; EOSINOPHILS # (AUTO) 0.1 10^3/uL (0.0-0.7); EOSINOPHILS % (AUTO) 2.2 %; HGB - HEMOGLOBIN 15.5 g/dL (14.0-18.0); LYMPHOCYTES # (AUTO) 1.7 10^3/uL (1.5-3.5); LYMPHOCYTES % (AUTO) 33.2 %; MEAN CORPUSCULAR HEMOGLOBIN 29.9 pg (27.0-31.0); MEAN CORPUSCULAR HGB CONC 33.7 g/dL (32.0-36.0); MEAN CORPUSCULAR VOLUME 88.6 fL (80.0-94.0); MEAN PLATELET VOLUME 9.4 fL (7.4-11.4); MONOCYTES # (AUTO) 0.4 10^3/uL (0.0-1.0); MONOCYTES % (AUTO) 8.5 %; NEUTROPHILS # (AUTO) 2.8 10^3/uL (1.5-6.6); NEUTROPHILS % (AUTO) 55.1 %; PLT - PLATELET COUNT 219 10^3/uL (130-450); RED BLOOD COUNT 5.19 10^6/uL (4.70-6.10); RED CELL DISTRIBUTION WIDTH 12.3 % (12.0-15.0)
[2023-07-30 09:45] LABS: ALBUMIN 4.6 g/dL (3.2-5.5); ALBUMIN/GLOBULIN RATIO 1.4 (1.0-2.2); ALKALINE PHOSPHATASE 124 IU/L (42-121); ALT ALANINE AMINOTRANSFERASE 20 IU/L (10-60); AST ASPARTATE AMINOTRANSFERASE 20 IU/L (10-42); BILIRUBIN,TOTAL 0.7 mg/dL (0.2-1.0); BUN - BLOOD UREA NITROGEN 19 mg/dL (6-20); CALCIUM 9.8 mg/dL (8.5-10.3); CARBON DIOXIDE - CO2 26 mmol/L (21-32); CHLORIDE 105 mmol/L (101-111); CHOL/HDL RATIO 5.5 (<5.0); CHOLESTEROL 232 mg/dL; CREATININE 0.9 mg/dL (0.6-1.3); GFR - MDRD 95 (>89); GLUCOSE 97 mg/dL (74-104); HDL CHOLESTEROL 42 mg/dL; LDL CHOLESTEROL,CALCULATED 164 mg/dL; LDL/HDL RATIO 3.9 (<3.6); POTASSIUM 4.4 mmol/L (3.5-4.5); SODIUM 137 mmol/L (135-145); TRIGLYCERIDES 128 mg/dL (48-352); VLDL CHOLESTEROL 26 mg/dL
[2023-07-30 10:00] LABS: THYROID STIMULATING HORMONE 1.01 uIU/mL (0.34-5.60)
== END 2023-07-30 09:18 | disposition home or self-care (01) ==
LOC: LAB 09:17
PROVIDERS: ATTEND Registered Nurse
DX: Z13.220 Encounter for screening for lipoid disorders (principal); Z79.899 Other long term (current) drug therapy; Z13.0 Encounter for screening for diseases of the blood and blood-forming organs and certain disorders involving the immune mechanism
CPT/HCPCS: 36415; 80053; 80061; 83721; 84443; 85025